=== PATIENT | female | born 1995 | race Two or more races ===

== ENCOUNTER 2021-01-13 20:28 | Emergency (ER) | payer MEDICAID ==
--- NOTE | 2021-01-13 20:46 | EDM.PDOC ---
ED HPI GENERAL MEDICAL PROBLEM - General Chief Complaint: General Stated Complaint: DIZZINESS Time Seen by Provider: 01/13/21 20:35 - History of Present Illness INITIAL COMMENTS - FREE TEXT/NARRATIVE: History of present illness: [] The patient feels dizzy. It started today. When she stands up she feels like she will pass out. She feels lightheaded. Sometime in the afternoon she developed some tingling feeling pinpricks in the left hand. That went away but she remained dizzy. The patient is 21 weeks . She is not diabetic. She is a non-smoker. She is a who has a baby with her when her boyfriend goes to work she is alone at home with the baby. She felt unsteady and decided she needed help to assure she would be safe at home with her . Review of systems: As per history of present illness and below otherwise all systems reviewed and negative. Past medical history: As per history of present illness and as reviewed below otherwise noncontributory. Surgical history: As per history of present illness and as reviewed below otherwise noncontributory. Social history: No reported history of drug or alcohol abuse. Family history: As per history of present illness and as reviewed below otherwise noncontributory. Physical exam: Constitutional - well developed, well-nourished and in no acute distress HEENT - normocephalic, no evidence of trauma - external nose and mouth normal - no mass in neck and no JVD - mucosae moist EYES - full EOM, PERRL, no icterus - no evidence of inflammation, injection, or drainage Respiratory - no respiratory distress, equal bilateral expansion, lungs clear to auscultation and no abnormal lung sounds Cardiovascular - Regular Rhythm with S1 and S2 appreciated and no murmur, gallop or rub. GI -gravid uterus. Abdomen soft without distension or organomegaly - normal bowel sounds - no guard or rebound Musculoskeletal no gross deformity of long bones or joints - no tenderness, swelling or edema Neurologic -my customary neurologic exam is normal. Alert and oriented times four - CN II-XII grossly intact - motor sensory and coordination symmetrically normal Psychiatric - appropriate mood and affect with normal thought content Hematologic - No petechiae or purpura - mucosa appropriate color and sclera not pale - normal nail bed color and refill Integument - no rash or evidence of trauma - normal turgor Diagnostics: [] Therapeutics: [] Impression: [] Plan: [] Definitive disposition and diagnosis as appropriate pending reevaluation and review of above. - Related Data Allergies Allergy/AdvReac Type Severity Reaction Status Date / Time codeine Allergy Abdominal Verified 01/13/21 20:39 Pain shellfish derived Allergy Anaphylactic Verified 01/13/21 20:39 Shock Sulfa (Sulfonamide Allergy Anxiety Verified 01/13/21 20:39 Antibiotics) Home Meds: Home Meds Aspirin 81 mg PO DAILY 01/13/21 [History] Pnv No.95/Ferrous Fum/Folic AC [ Caplet] 1 tab PO DAILY 01/13/21 [History] ED ROS GENERAL - Review of Systems Review Of Systems: Comprehensive ROS is negative, except as noted in HPI. ED EXAM, GENERAL - Physical Exam Exam: See Below Free Text/Narrative:: My physical exam is in the HPI #1 Interpretation EKG Interpretation Comments: EKG done at 2031 hrs. sinus rhythm with heart rate 98 [place] 120 QT interval 421 [place] XVI normal QRS normal ST and T impression normal EKG Course - Vital Signs Text/Narrative:: 2207 hrs. patient's hemoglobin is 10.2. Discussed with reviewed the records that the patient had been having a hemoglobin of 13 in August. Patient had anemia issues in the prior as well. Plan to recommend iron and maintain hydration. The patient's boyfriend showed up and is able to stay with her for the next 9 days. Patient will be discharged in satisfactory condition. Last Recorded V/S: Last Vital Signs Temp 36.6 C 01/13/21 20:33 Pulse 103 H 01/13/21 20:33 Resp 17 01/13/21 20:33 BP 117/78 01/13/21 20:33 Pulse Ox 99 01/13/21 20:33 Orthostatic Blood Pressure [ 129/63 Standing] Orthostatic Blood Pressure [ 115/74 Sitting] Orthostatic Blood Pressure [ 108/64 Supine] - Orders/Labs/Meds Orders: Active Orders 24 hr Category Date Time Status EKG 12 Lead [EKG Documentation Completion] [RC] STAT Care 01/13/21 20:48 Active Heart Tones [RC] ASDIRECTED Care 01/13/21 20:48 Active Orthostatic Vital Signs [RC] ASDIRECTED Care 01/13/21 21:45 Active Sodium Chloride 0.9% [Saline Flush] Med 01/13/21 20:47 Active 10 ml FLUSH ASDIRECTED PRN Sodium Chloride 0.9% [Saline Flush] Med 01/13/21 20:47 Active 2.5 ml FLUSH ASDIRECTED PRN Saline Lock Insert [OM.PC] Stat Oth 01/13/21 20:47 Ordered Medication Orders Sodium Chloride (Sodium Chloride 0.9% 10 Ml Syringe) 10 ml FLUSH ASDIRECTED PRN PRN Reason: Keep Vein Open Last Admin: 01/13/21 20:52 Dose: 10 ml Documented by: CAPRICE Sodium Chloride (Sodium Chloride 0.9% 2.5 Ml Syringe) 2.5 ml FLUSH ASDIRECTED P RN PRN Reason: Keep Vein Open Last Admin: 01/13/21 20:52 Dose: 2.5 ml Documented by: CAPRICE Labs: Laboratory Tests 01/13/21 01/13/21 01/13/21 Range/Units 21:00 21:00 21:29 WBC 7.74 (4.0-11.0) K/uL RBC 3.53 L (4.30-5.90) M/uL Hgb 10.2 L (12.0-16.0) g/dL Hct 31.0 L (36.0-46.0) % MCV 87.8 (80.0-98.0) fL MCH 28.9 (27.0-32.0) pg MCHC 32.9 (31.0-37.0) g/dL RDW Std Deviation 40.9 (28.0-62.0) fl RDW Coeff of Joseph 13 (11.0-15.0) % Plt Count 198 (150-400) K/uL MPV 9.90 (7.40-12.00) fL Neut % (Auto) 59.2 (48.0-80.0) % Lymph % (Auto) 25.5 (16.0-40.0) % [place] % (Auto) 8.4 (0.0-15.0) % Eos % (Auto) 6.8 (0.0-7.0) % Baso % (Auto) 0.1 (0.0-1.5) % Neut # (Auto) 4.6 (1.4-5.7) K/uL Lymph # (Auto) 2.0 (0.6-2.4) K/uL [place] # (Auto) 0.7 (0.0-0.8) K/uL Eos # (Auto) 0.5 (0.0-0.7) K/uL Baso # (Auto) 0.0 (0.0-0.1) K/uL Nucleated RBC % 0.0 /100WBC Nucleated RBCs # 0 K/uL Sodium 139 (136-145) mmol/L Potassium 3.7 (3.5-5.1) mmol/L Chloride 106 (98-107) mmol/L Carbon Dioxide 24.0 (21.0-32.0) mmol/L BUN 6 L (7.0-18.0) mg/dL Creatinine 0.6 (0.6-1.0) mg/dL Est Cr Clr Drug Dosing 111.39 mL/min Estimated GFR (MDRD) > 60.0 ml/min Glucose 134 H (74-106) mg/dL Calcium 8.2 L (8.5-10.1) mg/dL Total Bilirubin 0.1 L (0.2-1.0) mg/dL AST 13 L (15-37) IU/L ALT 19 (14-63) IU/L Alkaline Phosphatase 67 (46-116) U/L Total Protein 6.1 L (6.4-8.2) g/dL Albumin 2.4 L (3.4-5.0) g/dL Globulin 3.7 (2.6-4.0) g/dL Albumin/Globulin Ratio 0.7 L (0.9-1.6) Urine Color YELLOW Urine Appearance CLEAR Urine pH 6.5 (5.0-8.0) Ur Specific [place] 1.010 (1.001-1.035) Urine Protein NEGATIVE (NEGATIVE) mg/dL Urine Glucose (UA) 100 H (NEGATIVE) mg/dL Urine Ketones NEGATIVE (NEGATIVE) mg/dL Urine Occult Blood TRACE-INTACT H (NEGATIVE) Urine Nitrite NEGATIVE (NEGATIVE) Urine Bilirubin NEGATIVE (NEGATIVE) Urine Urobilinogen 0.2 (<2.0) EU/dL Ur Leukocyte Esterase TRACE H (NEGATIVE) Urine RBC 0-2 (0-2/HPF) Urine WBC 0-3 (0-5/HPF) Ur Epithelial Cells FEW (NONE-FEW) Urine Bacteria FEW (NEGATIVE) Meds: Medications Generic Name Dose Route Start Last Admin Trade Name Freq PRN Reason Stop Dose Admin Sodium Chloride 10 ml 01/13/21 20:47 01/13/21 20:52 Sodium Chloride 0.9% 10 Ml Syringe FLUSH 10 ml ASDIRECTED PRN Administration Keep Vein Open Sodium Chloride 2.5 ml 01/13/21 20:47 01/13/21 20:52 Sodium Chloride 0.9% 2.5 Ml Syringe FLUSH 2.5 ml ASDIRECTED PRN Administration Keep Vein Open Discontinued Medications Generic Name Dose Route Start Last Admin Trade Name Freq PRN Reason Stop Dose Admin Sodium Chloride 1,000 mls @ 1,000 mls/hr 01/13/21 20:49 01/13/21 20:52 Normal Saline IV 01/13/21 21:48 1,000 mls/hr .Bolus ONE Administration Departure - Departure Time of Disposition: 22:08 Disposition: Home, Self-Care 01 Condition: Good Clinical Impression: Dizziness, Anemia affecting - Discharge Information Instructions: and Anemia Forms: ED Department Discharge Additional Instructions: Iron supplementation is available [id number]. You can take the equivalent of up to 200 mg of elemental iron per day in divided doses up to 3 times a day. Make sure you are also taking enough nutrition and plenty of fluids. [facility] [address] [place] [address] [facility] [address] [place] [address] The following information is given to patients seen in the emergency department who are being discharged to home. This information is to outline your options for follow-up care. We provide all patients seen in our emergency department with a follow-up referral. The need for follow-up, as well as the timing and circumstances, are variable depending upon the specifics of your emergency department visit. If you don't have a primary care physician on staff, we will provide you with a referral. We always advise you to contact your personal physician following an emergency department visit to inform them of the circumstance of the visit and for follow-up with them and/or the need for any referrals to a consulting specialist. The emergency department will also refer you to a specialist when appropriate. This referral assures that you have the opportunity for follow-up care with a specialist. All of these measure are taken in an effort to provide you with optimal care, which includes your follow-up. Under all circumstances we always encourage you to contact your private physician who remains a resource for coordinating your care. When calling for follow-up care, please make the office aware that this follow-up is from your recent emergency room visit. If for any reason you are refused follow-up, please contact the [facility] Emergency Department at and asked to speak to the emergency department caridad sánchez nurse. Sepsis Event Note (ED) - Focused Exam Vital Signs: Vital Signs Temp Pulse Resp BP Pulse Ox 01/13/21 20:33 36.6 C 103 H 17 117/78 99 - My Orders Last 24 Hours: My Active Orders 01/13/21 20:47 Sodium Chloride 0.9% [Saline Flush] 10 ml FLUSH ASDIRECTED PRN Sodium Chloride 0.9% [Saline Flush] 2.5 ml FLUSH ASDIRECTED PRN Saline Lock Insert [OM.PC] Stat 01/13/21 20:48 EKG 12 Lead [EKG Documentation Completion] [RC] STAT Heart Tones [RC] ASDIRECTED 01/13/21 21:45 Orthostatic Vital Signs [RC] ASDIRECTED - Assessment/Plan Last 24 Hours: My Active Orders 01/13/21 20:47 Sodium Chloride 0.9% [Saline Flush] 10 ml FLUSH ASDIRECTED PRN Sodium Chloride 0.9% [Saline Flush] 2.5 ml FLUSH ASDIRECTED PRN Saline Lock Insert [OM.PC] Stat 01/13/21 20:48 EKG 12 Lead [EKG Documentation Completion] [RC] STAT Heart Tones [RC] ASDIRECTED 01/13/21 21:45 Orthostatic Vital Signs [RC] ASDIRECTED
[2021-01-13] MEDS ORDERED: Sodium Chloride 0.9% 10 ML Syringe FLUSH PRN (20:47)
[2021-01-13] MEDS ORDERED: Sodium Chloride 0.9% 2.5 ML Syringe FLUSH PRN (20:47)
[2021-01-13] MEDS ORDERED: Sodium Chloride 0.9% 1,000 ML IV ONE (20:49)
[2021-01-13 21:26] LABS: BLOOD UREA NITROGEN,BUN 6 mg/dL (7.0-18.0); CHLORIDE,CL 106 mmol/L (98-107); GLUCOSE RANDOM 134 mg/dL (74-106); POTASSIUM,K 3.7 mmol/L (3.5-5.1); SODIUM,NA 139 mmol/L (136-145)
== END 2021-01-13 22:30 | disposition home or self-care (01) ==
LOC: MW.ED 20:28
DX: O99.012 Anemia complicating pregnancy, second trimester (principal); O99.891 Other specified diseases and conditions complicating pregnancy; R42 Dizziness and giddiness; Z79.82 Long term (current) use of aspirin; Z88.5 Allergy status to narcotic agent; Z88.2 Allergy status to sulfonamides; Z91.013 Allergy to seafood; Z3A.21 21 weeks gestation of pregnancy
CPT/HCPCS: 36415; 80053; 81001; 82947; 85025; 93005; 99284; J7030; 93010; 99283

== ENCOUNTER 2021-02-09 16:02 | Emergency (ER) | payer MEDICAID ==
--- NOTE | 2021-02-09 16:41 | EDM.PDOC ---
ED HPI GENERAL MEDICAL PROBLEM - General Chief Complaint: Lower Extremity Injury/Pain Stated Complaint: SWOLLEN FOOT Time Seen by Provider: 02/09/21 16:08 - History of Present Illness INITIAL COMMENTS - FREE TEXT/NARRATIVE: History of present illness: [] Patient is 2 weeks of pain in the left foot. It is gradually increasing. It is associated with swelling that goes down a little bit with ice and elevation but not substantially. The pain is severe when she tries to walk on it and she walks on it outer lateral side of her foot because of that. The patient is starting to lose her balance and feels like she is going to fall because of this. She is 25 weeks . Review of systems: As per history of present illness and below otherwise all systems reviewed and negative. Past medical history: As per history of present illness and as reviewed below otherwise noncontributory. Surgical history: As per history of present illness and as reviewed below otherwise noncontributory. Social history: No reported history of drug or alcohol abuse. Family history: As per history of present illness and as reviewed below otherwise noncontributory. Physical exam: Constitutional - well developed, well-nourished and in no acute distress HEENT - normocephalic, no evidence of trauma - external nose and mouth normal - no mass in neck and no JVD - mucosae moist EYES - full EOM, PERRL, no icterus - no evidence of inflammation, injection, or drainage Respiratory - no respiratory distress, equal bilateral expansion GI - abdomen soft with fundus palpable consistent with her dates. Musculoskeletal swelling and tenderness on the dorsal left foot at the level of the distal metatarsals 1 2 and 3. Otherwise no gross deformity of long bones or joints - no tenderness, swelling or edema Neurologic - Alert and oriented times four - CN II-XII grossly intact - motor sensory and coordination symmetrically normal Psychiatric - appropriate mood and affect with normal thought content Hematologic - No petechiae or purpura - mucosa appropriate color and sclera not pale - normal nail bed color and refill Integument - no rash or evidence of trauma - normal turgor Diagnostics: [] Therapeutics: [] Impression: [] Plan: [] Definitive disposition and diagnosis as appropriate pending reevaluation and review of above. Left Ankle Pain Score (Numeric/FACES): 8 - Related Data Allergies Allergy/AdvReac Type Severity Reaction Status Date / Time codeine Allergy Abdominal Verified 02/09/21 16:20 Pain shellfish derived Allergy Anaphylactic Verified 02/09/21 16:20 Shock Sulfa (Sulfonamide Allergy Anxiety Verified 02/09/21 16:20 Antibiotics) Home Meds: Home Meds Aspirin 81 mg PO DAILY 01/13/21 [History] Pnv No.95/Ferrous Fum/Folic AC [ Caplet] 1 tab PO DAILY 01/13/21 [History] Past Medical History - Past Health History Medical/Surgical History: Denies Medical/Surgical History Other Cardiovascular History: costochrondritis, pleurisy - Infectious Disease History Infectious Disease History: Reports: None Social & Family History - Family History Family Medical History: No Pertinent Family History - Tobacco Use Tobacco Use Status *Q: Never Tobacco User - Caffeine Use Caffeine Use: Reports: None - Recreational Drug Use Recreational Drug Use: No Review of Systems - Review of Systems Review Of Systems: Comprehensive ROS is negative, except as noted in HPI. ED EXAM, GENERAL - Physical Exam Exam: See Below Free Text/Narrative:: My physical exam is in the HPI Course - Vital Signs Text/Narrative:: Since the x-ray and ultrasound are negative for the left lower extremity. Plan Shad wrap and cups crutches to immobilize and reduce the swelling. Last Recorded V/S: Last Vital Signs Temp 36.1 C 02/09/21 16:22 Pulse 101 H 02/09/21 16:22 Resp 18 02/09/21 16:22 BP 106/66 02/09/21 16:22 Pulse Ox 98 02/09/21 16:22 - Orders/Labs/Meds Orders: Active Orders 24 hr Category Date Time Status DME for Discharge [COMM] Stat Oth 02/09/21 18:15 Ordered Departure - Departure Time of Disposition: 18:30 Disposition: Home, Self-Care 01 Condition: Good Clinical Impression: Sprain of left foot - Discharge Information Instructions: Foot Sprain Referrals: PCP,None [Primary Care Provider] - Forms: ED Department Discharge Additional Instructions: Rest ice compress and elevate. Follow-up PMD or Ortho clinic if not better in 2 to 3 days. [facility] [address], [address] [place] [address] The following information is given to patients seen in the emergency department who are being discharged to home. This information is to outline your options for follow-up care. We provide all patients seen in our emergency department with a follow-up referral. The need for follow-up, as well as the timing and circumstances, are variable depending upon the specifics of your emergency department visit. If you don't have a primary care physician on staff, we will provide you with a referral. We always advise you to contact your personal physician following an emergency department visit to inform them of the circumstance of the visit and for follow-up with them and/or the need for any referrals to a consulting specialist. The emergency department will also refer you to a specialist when appropriate. This referral assures that you have the opportunity for follow-up care with a specialist. All of these measure are taken in an effort to provide you with optimal care, which includes your follow-up. Under all circumstances we always encourage you to contact your private physician who remains a resource for coordinating your care. When calling for follow-up care, please make the office aware that this follow-up is from your recent emergency room visit. If for any reason you are refused follow-up, please contact the [facility] Emergency Department at and asked to speak to the emergency department charge nurse. Sepsis Event Note (ED) - Evaluation Sepsis Screening Result: No Definite Risk - Focused Exam Vital Signs: Vital Signs Temp Pulse Resp BP Pulse Ox 02/09/21 16:22 36.1 C 101 H 18 106/66 98 - My Orders Last 24 Hours: My Active Orders 02/09/21 18:15 DME for Discharge [COMM] Stat - Assessment/Plan Last 24 Hours: My Active Orders 02/09/21 18:15 DME for Discharge [COMM] Stat
--- NOTE | 2021-02-09 17:49 | US ---
INDICATION: Leg pain and swelling TECHNIQUE: Ultrasound venous duplex lower left extremity. Compression venous exam was performed using shukla-scale, color Doppler, and spectral Doppler analysis. COMPARISON: None. FINDINGS: Sonographic imaging demonstrates the left common femoral, deep femoral, superficial femoral, popliteal, posterior tibial and greater saphenous veins to be fully compressible with normal color Doppler blood flow. IMPRESSION: Normal left lower extremity venous ultrasound, no sign of deep venous thrombosis. Dictated by Jeffery El MD @ 02/09/2021 5:47:[address] Jeffery El @ Feb 09 2021 5:47PM
--- NOTE | 2021-02-09 18:06 | CR ---
Indication: Left foot swelling and pain. Technique: Left foot 3 views Comparison: None Findings: Bones: Alignment is normal. No fractures or bone lesions. Joint spaces: Joint spaces are well maintained. No degenerative changes. Soft tissues: Unremarkable. Impression: Negative left foot. Dictated by Sandro Clemente MD @ 02/09/2021 6:05:[address] Sandro Clemente @ Feb 09 2021 6:05PM
== END 2021-02-09 18:40 | disposition home or self-care (01) ==
LOC: MW.ED 16:02
DX: O9A.212 Injury, poisoning and certain other consequences of external causes complicating pregnancy, second trimester (principal); S93.602A Unspecified sprain of left foot, initial encounter; Z3A.25 25 weeks gestation of pregnancy; Z88.5 Allergy status to narcotic agent; Z91.013 Allergy to seafood; Z88.2 Allergy status to sulfonamides; Z79.82 Long term (current) use of aspirin; X58.XXXA Exposure to other specified factors, initial encounter
CPT/HCPCS: 73630-26-LT; 73630-LT; 93971-26-LT; 93971-LT; 99282; 99284-25

== ENCOUNTER 2021-02-11 12:37 | Emergency (ER) | payer MEDICAID ==
[2021-02-11] MEDS ORDERED: Sodium Chloride 0.9% 10 ML Syringe FLUSH PRN (13:01)
[2021-02-11] MEDS ORDERED: Sodium Chloride 0.9% 1,000 ML IV ONE (13:01)
[2021-02-11] MEDS ORDERED: Sodium Chloride 0.9% 2.5 ML Syringe FLUSH PRN (13:01)
[2021-02-11 13:41] LABS: BLOOD UREA NITROGEN,BUN 6 mg/dL (7.0-18.0); CARBON DIOXIDE,CO2 22.5 mmol/L (21.0-32.0); CHLORIDE,CL 103 mmol/L (98-107); GLUCOSE RANDOM 99 mg/dL (74-106); POTASSIUM,K 3.7 mmol/L (3.5-5.1); SODIUM,NA 135 mmol/L (136-145)
[2021-02-11] MEDS ORDERED: Nitrofurantoin Monohydrate/Macrocrystalline 100 MG Cap PO ONE (14:00)
[2021-02-11] MEDS ORDERED: Cephalexin 500 MG Cap PO ONE (14:13)
--- NOTE | 2021-02-11 14:17 | EDM.PDOC ---
ED HPI GENERAL MEDICAL PROBLEM - General Chief Complaint: Fever Stated Complaint: feeling weak,fever,sore throat Time Seen by Provider: 02/11/21 12:46 Source of Information: Reports: Patient History Limitations: Reports: No Limitations - History of Present Illness INITIAL COMMENTS - FREE TEXT/NARRATIVE: HISTORY AND PHYSICAL: History of present illness: The patient is a 25-year-old female who presents to the emergency room, she is 25 weeks , with complaints of a fever of 10 2-1 03 at 09 100 for which she took Tylenol. She states that she has a cough slight scratchy throat since yesterday. Her daughter was recently diagnosed with croup. She said she had vomiting x1 today. She says she has had no Atif symptoms such as dysuria or frequency. She did state that during the night she had some mild cramping but none today. She says she is able to eat and drink at present without difficulty. She states baby has been moving appropriately. Patient denies any headache, change in vision, syncope or near syncope. Denies any chest pain, back pain, or shortness of breath. Denies any abdominal pain, diarrhea, constipation or dysuria. Has not noted any blood in urine or stool. Patient has been eating and drinking appropriately. In the emergency room the patient is he is hemodynamically stable with a blood pressure of 98/64 and a heart rate of 103. She is afebrile with a temperature of 97.3. Review of systems: As per history of present illness and below otherwise all systems reviewed and negative. Past medical history: As per history of present illness and as reviewed below otherwise noncontributory. Surgical history: As per history of present illness and as reviewed below otherwise noncontributory. Social history: See social history for further information Family history: As per history of present illness and as reviewed below otherwise noncontributory. Physical exam: General: Well developed and well nourished. Alert and orientated x 3. Nontoxic in appearance and in no acute distress. Vital signs are stable and have been reviewed by me. Nursing notes were reviewed. HEENT: Atraumatic, normocephalic, pupils equal and reactive bilaterally, negative for conjunctival pallor or scleral icterus, mucous membranes moist, TMs normal bilaterally, throat clear, neck supple, nontender, trachea midline. No drooling or trismus noted. No meningeal signs. No hot potato voice noted. Lungs: Clear to auscultation bilaterally. No wheezes, rales, or rhonchi. Chest nontender. Normal work of breathing, no accessory muscles used. Heart: S1S2, regular rate and rhythm without overt murmur, gallops, or rubs. No JVD. No peripheral edema Abdomen: Rounded (25 weeks ), nontender. Normoactive bowel sounds. Negative for masses or costovertebral tenderness. Skin: Intact, warm, dry. No lesions or rashes noted. Hematologic: No petechiae or purpra. Mucosa appropriate color and normal nail bed color and refill. Extremities: Atraumatic, moves all extremities per self without difficulty or deficits, negative for cords or calf pain. Neurovascular unremarkable. Neuro: Awake, alert, oriented. Cranial nerves II through XII unremarkable. Cerebellum unremarkable. Motor and sensory unremarkable throughout. Exam nonfocal. Psychiatric: Mood and affect are appropriate. Normal thought process. Answering questions appropriately. Notes: *This patient was seen and evaluated during the 2019 SARS-CoV-2 novel coronavirus pandemic period. Community viral transmission is ongoing at time of this encounter and the emergency department is operating under pandemic response procedures. The patient presents for complaints of a fever that started this morning but she has had a cough since yesterday. She does state that she has a scratchy throat but as she has a cough I will not test her for strep. The patient is agreeable to blood work, urinalysis, and Covid testing. I will give the patient IV fluids. The RN stated heart tones were within normal limits. The patient's blood work is unremarkable. Her COVID-19 swab was negative. The patient's urinalysis suggested a UTI. Blood culture has been sent. I will start the patient on Keflex 500 mg twice daily for 5 days. 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 I have talked with the patient about today's findings, in addition to providing specific details for plan of care. Reassessment at the time of disposition demonstrates that the patient is in no acute distress. The patient is stable for discharge, counseling was provided and we discussed in great detail signs and symptoms that would prompt them to return to the Emergency Department. Medication, follow up and supportive care measures were reviewed and discussed. Voices understanding and is agreeable to plan of care. Denies any further questions or concerns at this time. Diagnostics: CBC, CMP, UA, COVID-19 swab Therapeutics: IV fluids Prescription: Keflex 500 p.o. twice daily for 5 days Impression: UTI Plan: 1. You were evaluated today on an emergent basis. Your complaints of a fever were evaluated with blood work, a urinalysis, and a COVID-19 swab. Your blood work was within normal limits. Your COVID-19 swab was negative. Your urinalysis showed an infection. I have sent this for culture. You should follow-up with your CAREER DEVELOPMENT COORDINATOR/TEACHER to ensure that Keflex is the appropriate antibiotic for you. I have prescribed you to have Keflex 500 mg twice a day for 5 days. Continue to get the appropriate mount of fluids and healthy diet. You can use Tylenol to treat the discomfort of fever as needed. 2. You can alternate Tylenol as needed for pain and fever management. 3. We encourage you to follow up with your primary care provider and/or recommended specialist in the next few days for re-evaluation and further care/management. 4. If your symptoms should worsen, new symptoms develop or any of the signs and symptoms we discussed should arise please return to the emergency room or call 911 (if needed). Definitive disposition and diagnosis as appropriate pending reevaluation and review of above. sorethroat Pain Score (Numeric/FACES): 5 - Related Data Allergies Allergy/AdvReac Type Severity Reaction Status Date / Time codeine Allergy Abdominal Verified 02/11/21 13:10 Pain shellfish derived Allergy Anaphylactic Verified 02/11/21 13:10 Shock Sulfa (Sulfonamide Allergy Anxiety Verified 02/11/21 13:10 Antibiotics) Home Meds: Home Meds Aspirin 81 mg PO DAILY 01/13/21 [History] Pnv No.95/Ferrous Fum/Folic AC [ Caplet] 1 tab PO DAILY 01/13/21 [History] cephALEXin [Keflex] 500 mg PO BID 10 Days #9 cap 02/11/21 [Rx] Past Medical History - Past Health History Medical/Surgical History: Denies Medical/Surgical History Other Cardiovascular History: costochrondritis, pleurisy 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 ED EXAM, GENERAL - Physical Exam Exam: See Below (See dictation) Course - Vital Signs Last Recorded V/S: Last Vital Signs Temp 97.3 F 02/11/21 12:50 Pulse 88 02/11/21 14:00 Resp 17 02/11/21 14:00 BP 109/62 02/11/21 14:00 Pulse Ox 99 02/11/21 14:00 - Orders/Labs/Meds Orders: Active Orders 24 hr Category Date Time Status Saline Lock Insert [OM.PC] Stat Oth 02/11/21 13:00 Ordered Labs: Laboratory Tests 02/11/21 02/11/21 02/11/21 Range/Units 13:10 13:10 13:24 WBC 7.56 (4.0-11.0) K/uL RBC 3.92 L (4.30-5.90) M/uL Hgb 11.0 L (12.0-16.0) g/dL Hct 33.2 L (36.0-46.0) % MCV 84.7 (80.0-98.0) fL MCH 28.1 (27.0-32.0) pg MCHC 33.1 (31.0-37.0) g/dL RDW Std Deviation 39.6 (28.0-62.0) fl RDW Coeff of Joseph 13 (11.0-15.0) % Plt Count 213 (150-400) K/uL MPV 10.20 (7.40-12.00) fL Neut % (Auto) 72.6 (48.0-80.0) % Lymph % (Auto) 18.3 (16.0-40.0) % [place] % (Auto) 7.0 (0.0-15.0) % Eos % (Auto) 2.0 (0.0-7.0) % Baso % (Auto) 0.1 (0.0-1.5) % Neut # (Auto) 5.5 (1.4-5.7) K/uL Lymph # (Auto) 1.4 (0.6-2.4) K/uL [place] # (Auto) 0.5 (0.0-0.8) K/uL Eos # (Auto) 0.2 (0.0-0.7) K/uL Baso # (Auto) 0.0 (0.0-0.1) K/uL Nucleated RBC % 0.0 /100WBC Nucleated RBCs # 0 K/uL Sodium 135 L (136-145) mmol/L Potassium 3.7 (3.5-5.1) mmol/L Chloride 103 (98-107) mmol/L Carbon Dioxide 22.5 (21.0-32.0) mmol/L BUN 6 L (7.0-18.0) mg/dL Creatinine 0.6 (0.6-1.0) mg/dL Est Cr Clr Drug Dosing 111.39 mL/min Estimated GFR (MDRD) > 60.0 ml/min Glucose 99 (74-106) mg/dL Calcium 8.7 (8.5-10.1) mg/dL Total Bilirubin 0.1 L (0.2-1.0) mg/dL AST 14 L (15-37) IU/L ALT 18 (14-63) IU/L Alkaline Phosphatase 85 (46-116) U/L Total Protein 7.1 (6.4-8.2) g/dL Albumin 2.8 L (3.4-5.0) g/dL Globulin 4.3 H (2.6-4.0) g/dL Albumin/Globulin Ratio 0.7 L (0.9-1.6) Urine Color Urine Appearance Urine pH (5.0-8.0) Ur Specific [place] (1.001-1.035) Urine Protein (NEGATIVE) mg/dL Urine Glucose (UA) (NEGATIVE) mg/dL Urine Ketones (NEGATIVE) mg/dL Urine Occult Blood (NEGATIVE) Urine Nitrite (NEGATIVE) Urine Bilirubin (NEGATIVE) Urine Urobilinogen (<2.0) EU/dL Ur Leukocyte Esterase (NEGATIVE) Urine RBC (0-2/HPF) Urine WBC (0-5/HPF) Ur Epithelial Cells (NONE-FEW) Urine Bacteria (NEGATIVE) SARS-CoV-2 RNA (JEREMIAH) NEGATIVE (NEGATIVE) 05/22/21 Range/Units 13:30 WBC (4.0-11.0) K/uL RBC (4.30-5.90) M/uL Hgb (12.0-16.0) g/dL Hct (36.0-46.0) % MCV (80.0-98.0) fL MCH (27.0-32.0) pg MCHC (31.0-37.0) g/dL RDW Std Deviation (28.0-62.0) fl RDW Coeff of Joseph (11.0-15.0) % Plt Count (150-400) K/uL MPV (7.40-12.00) fL Neut % (Auto) (48.0-80.0) % Lymph % (Auto) (16.0-40.0) % [place] % (Auto) (0.0-15.0) % Eos % (Auto) (0.0-7.0) % Baso % (Auto) (0.0-1.5) % Neut # (Auto) (1.4-5.7) K/uL Lymph # (Auto) (0.6-2.4) K/uL [place] # (Auto) (0.0-0.8) K/uL Eos # (Auto) (0.0-0.7) K/uL Baso # (Auto) (0.0-0.1) K/uL Nucleated RBC % /100WBC Nucleated RBCs # K/uL Sodium (136-145) mmol/L Potassium (3.5-5.1) mmol/L Chloride (98-107) mmol/L Carbon Dioxide (21.0-32.0) mmol/L BUN (7.0-18.0) mg/dL Creatinine (0.6-1.0) mg/dL Est Cr Clr Drug Dosing mL/min Estimated GFR (MDRD) ml/min Glucose (74-106) mg/dL Calcium (8.5-10.1) mg/dL Total Bilirubin (0.2-1.0) mg/dL AST (15-37) IU/L ALT (14-63) IU/L Alkaline Phosphatase (46-116) U/L Total Protein (6.4-8.2) g/dL Albumin (3.4-5.0) g/dL Globulin (2.6-4.0) g/dL Albumin/Globulin Ratio (0.9-1.6) Urine Color YELLOW Urine Appearance SLT CLOUDY Urine pH 6.0 (5.0-8.0) Ur Specific [place] 1.025 (1.001-1.035) Urine Protein NEGATIVE (NEGATIVE) mg/dL Urine Glucose (UA) NEGATIVE (NEGATIVE) mg/dL Urine Ketones >=80 (NEGATIVE) mg/dL Urine Occult Blood SMALL H (NEGATIVE) Urine Nitrite NEGATIVE (NEGATIVE) Urine Bilirubin NEGATIVE (NEGATIVE) Urine Urobilinogen 0.2 (<2.0) EU/dL Ur Leukocyte Esterase TRACE H (NEGATIVE) Urine RBC 0-2 (0-2/HPF) Urine WBC 1-3 (0-5/HPF) Ur Epithelial Cells MODERATE (NONE-FEW) Urine Bacteria 1+ H (NEGATIVE) SARS-CoV-2 RNA (JEREMIAH) (NEGATIVE) Meds: Medications Discontinued Medications Generic Name Dose Route Start Last Admin Trade Name Freq PRN Reason Stop Dose Admin Cephalexin 500 mg 02/11/21 14:13 02/11/21 14:28 Cephalexin 500 Mg Cap PO 02/11/21 14:14 500 mg ONETIME ONE Administration Sodium Chloride 1,000 mls @ 999 mls/hr 02/11/21 13:01 02/11/21 13:11 Normal Saline IV 02/11/21 14:01 999 mls/hr .BOLUS ONE Administration Nitrofurantoin Macrocrystals 100 mg 02/11/21 14:00 02/11/21 14:27 Nitrofurantoin Monohydrate/Macrocrystalline 100 Mg Cap PO 02/11/21 14:01 Not Given ONETIME ONE Sodium Chloride 10 ml 02/11/21 13:01 02/11/21 13:11 Sodium Chloride 0.9% 10 Ml Syringe FLUSH 10 ml ASDIRECTED PRN Administration Keep Vein Open Sodium Chloride 2.5 ml 02/11/21 13:01 02/11/21 13:11 Sodium Chloride 0.9% 2.5 Ml Syringe FLUSH 2.5 ml ASDIRECTED PRN Administration Keep Vein Open Departure - Departure Time of Disposition: 14:16 Disposition: Home, Self-Care 01 Condition: Good Clinical Impression: UTI (urinary tract infection) Qualifiers: Urinary tract infection type: acute cystitis Hematuria presence: without hematuria Qualified Code(s): N30.00 - Acute cystitis without hematuria - Discharge Information *PRESCRIPTION DRUG MONITORING PROGRAM REVIEWED*: Not Applicable *COPY OF PRESCRIPTION DRUG MONITORING REPORT IN PATIENT REGINE: Not Applicable Prescriptions: cephALEXin [Keflex] 500 mg PO BID 10 Days #9 cap Instructions: and Urinary Tract Infection Referrals: PCP,None [Primary Care Provider] - Forms: ED Department Discharge Additional Instructions: The following information is given to patients seen in the emergency department who are being discharged to home. This information is to outline your options for follow-up care. We provide all patients seen in our emergency department with a follow-up referral. The need for follow-up, as well as the timing and circumstances, are variable depending upon the specifics of your emergency department visit. If you don't have a primary care physician on staff, we will provide you with a referral. We always advise you to contact your personal physician following an emergency department visit to inform them of the circumstance of the visit and for follow-up with them and/or the need for any referrals to a consulting specialist. The emergency department will also refer you to a specialist when appropriate. This referral assures that you have the opportunity for follow-up care with a specialist. All of these measure are taken in an effort to provide you with optimal care, which includes your follow-up. Under all circumstances we always encourage you to contact your private physician who remains a resource for coordinating your care. When calling for follow-up care, please make the office aware that this follow-up is from your recent emergency room visit. If for any reason you are refused follow-up, please contact the [facility] Emergency Department at and asked to speak to the emergency department charge nurse. [facility] - Primary Care [address] [place] [id number] [address] Plan: 1. You were evaluated today on an emergent basis. Your complaints of a fever were evaluated with blood work, a urinalysis, and a COVID-19 swab. Your blood work was within normal limits. Your COVID-19 swab was negative. Your urinalysis showed an infection. I have sent this for culture. You should follow-up with your CAREER DEVELOPMENT COORDINATOR/TEACHER to ensure that Keflex is the appropriate antibiotic for you. I have prescribed you to have Keflex 500 mg twice a day for 5 days. Continue to get the appropriate mount of fluids and healthy diet. Return to the ED if you have nausea and vomiting. You can use Tylenol to treat the discomfort of fever as needed. 2. You can alternate Tylenol as needed for pain and fever management. 3. We encourage you to follow up with your primary care provider and/or recommended specialist in the next few days for re-evaluation and further care/management. 4. If your symptoms should worsen, new symptoms develop or any of the signs and symptoms we discussed should arise please return to the emergency room or call 911 (if needed). Sepsis Event Note (ED) - Evaluation Sepsis Screening Result: No Definite Risk - Focused Exam Vital Signs: Vital Signs Temp Pulse Resp BP Pulse Ox 02/11/21 14:00 88 17 109/62 99 02/11/21 12:50 97.3 F 98 19 108/64 98 - My Orders Last 24 Hours: My Active Orders 02/11/21 13:00 Saline Lock Insert [OM.PC] Stat - Assessment/Plan Last 24 Hours: My Active Orders 02/11/21 13:00 Saline Lock Insert [OM.PC] Stat
== END 2021-02-11 14:36 | disposition home or self-care (01) ==
LOC: MW.ED 12:37
DX: N30.00 Acute cystitis without hematuria (principal); Z88.5 Allergy status to narcotic agent; Z88.2 Allergy status to sulfonamides; Z91.013 Allergy to seafood; Z79.82 Long term (current) use of aspirin; Z20.822 Contact with and (suspected) exposure to COVID-19
CPT/HCPCS: 36415; 80053; 81001; 85025; 87635; 99283; A9270; J7030; U0002

== ENCOUNTER 2021-05-03 14:42 | Inpatient (IN) | payer MEDICAID ==
[2021-05-03] MEDS ORDERED: Sodium Chloride 0.9% 10 ML Syringe FLUSH PRN (15:01)
[2021-05-03] MEDS ORDERED: Ondansetron 4 MG/2 ML SDV IVPUSH PRN (15:01)
[2021-05-03] MEDS ORDERED: Butorphanol 1 MG/ML SDV IVPUSH PRN (15:01)
[2021-05-03] MEDS ORDERED: Tranexamic Acid 1,000 MG in Sodium Chloride 0.9% 100 ML IV PRN (15:01)
[2021-05-03] MEDS ORDERED: Sodium Chloride 0.9% 2.5 ML Syringe FLUSH PRN (15:01)
[2021-05-03] MEDS ORDERED: Water For Irrigation,Sterile 1,000 ML Container IRR PRN (15:01)
[2021-05-03] MEDS ORDERED: Lidocaine 1% 50 ML MDV INJECT PRN (15:01)
[2021-05-03] MEDS ORDERED: Nalbuphine 10 MG/1 ML Vial IVPUSH PRN (15:01)
[2021-05-03] MEDS ORDERED: Sodium Chloride 0.9% 10 ML SDV IV PRN (15:01)
[2021-05-03] MEDS ORDERED: Misoprostol 200 MCG Tab PO PRN (15:01)
[2021-05-03] MEDS ORDERED: Carboprost Tromethamine 250 MCG/1 ML Amp IM PRN (15:01)
[2021-05-03] MEDS ORDERED: Methylergonovine 0.2 MG/1 ML Amp IM PRN (15:01)
[2021-05-03] MEDS ORDERED: Oxytocin/0.9 % Sodium Chloride 30 UNIT/500 ML BAG IV SCH ×2 (15:15→17:45)
[2021-05-03] MEDS: Lactated Ringers 1,000 ML IV SCH ×3 (15:16→23:48)
[2021-05-03] MEDS ORDERED: Bupivacaine 0.25% 30 ML SDV ONE (15:46)
[2021-05-03] MEDS ORDERED: Ropivacaine HCl/PF 200 ML ONE (15:46)
--- NOTE | 2021-05-03 16:17 | PCM.PREANE ---
Preanesthetic Assessment - Anesthesia/Transfusion/Family Hx Anesthesia History: Prior Anesthesia Without Reaction Family History of Anesthesia Reaction: No Transfusion History: No Prior Transfusion(s) - Review of Systems General: No Symptoms Pulmonary: No Symptoms Cardiovascular: No Symptoms Gastrointestinal: No Symptoms Neurological: No Symptoms Other: Reports: None - Physical Assessment Height: 5 ft 2 in Weight: 170 lb ASA Class: 2 Mental Status: Alert & Oriented x3 Airway Class: Mallampati = 3 Dentition: Reports: Normal Dentition ROM/Head Extension: Full Lungs: Clear to Auscultation, Normal Respiratory Effort Cardiovascular: Regular Rate, Regular Rhythm - Lab Values: Laboratory Last Values POC Glucose 70 mg/dL (70-99) 05/03/21 15:33 - Allergies Allergies/Adverse Reactions: Allergies Allergy/AdvReac Type Severity Reaction Status Date / Time codeine Allergy Abdominal Verified 05/03/21 14:58 Pain Latex, Natural Rubber Allergy Itching Verified 05/03/21 14:59 shellfish derived Allergy Anaphylactic Verified 05/03/21 14:58 Shock Sulfa (Sulfonamide Allergy Anxiety Verified 05/03/21 14:58 Antibiotics) - Blood Blood Available: Yes Product(s) Available: PRBC - Anesthesia Plan Pre-Op Medication Ordered: None - Acknowledgements Anesthesia Type Planned: Epidural Pt an Appropriate Candidate for the Planned Anesthesia: Yes Alternatives and Risks of Anesthesia Discussed w Pt/Guardian: Yes Pt/Guardian Understands and Agrees with Anesthesia Plan: Yes PreAnesthesia Questionnaire - Past Health History Medical/Surgical History: Denies Medical/Surgical History Other Cardiovascular History: costochrondritis, pleurisy 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: - Infectious Disease History Infectious Disease History: Reports: None - Past Surgical History Cardiovascular Surgical History: Reports: None - HOME MEDS Home Medications: Home Meds Aspirin 81 mg PO DAILY 01/13/21 [History] Pnv No.95/Ferrous Fum/Folic AC [ Caplet] 1 tab PO DAILY 01/13/21 [History] Ferrous Sulfate, Dried [Iron] 160 mg PO DAILY 04/05/21 [History] Magnesium 250 mg PO DAILY 04/05/21 [History] - CURRENT (IN HOUSE) MEDS Current Meds: Current Medications Butorphanol Tartrate (Butorphanol 1 Mg/Ml Sdv) 1 mg IVPUSH Q1H PRN PRN Reason: Pain (severe 7-10) Carboprost Tromethamine (Carboprost Tromethamine 250 Mcg/1 Ml Amp) 250 mcg IM ASDIRECTED PRN PRN Reason: Post Hemorrhage Oxytocin/Sodium Chloride (Oxytocin 30 Unit/500 Ml-Ns) 30 unit in 500 mls @ 999 mls/hr IV TITRATE [facility] Tranexamic Acid 1,000 mg/ (Sodium Chloride) 110 mls @ 660 mls/hr IV ONETIME PRN PRN Reason: Bleeding Lactated Ringer's (Ringers, Lactated) 1,000 mls @ 150 mls/hr IV ASDIRECTED [facility] Last Admin: 05/03/21 15:57 Dose: 150 mls/hr Documented by: Lidocaine HCl (Lidocaine 1% 50 Ml Mdv) 50 ml INJECT ONETIME PRN PRN Reason: Laceration repair Methylergonovine Maleate (Methylergonovine 0.2 Mg/1 Ml Amp) 0.2 mg IM ASDIRECTED PRN PRN Reason: Post Hemorrhage Misoprostol (Misoprostol 200 Mcg Tab) 200 mcg PO ONETIME PRN PRN Reason: Post Hemorrhage Nalbuphine HCl (Nalbuphine 10 Mg/1 Ml Vial) 10 mg IVPUSH Q1H PRN PRN Reason: Pain (severe 7-10) Ondansetron HCl (Ondansetron 4 Mg/2 Ml Sdv) 4 mg IVPUSH Q6H PRN PRN Reason: Nausea/Vomiting Sodium Chloride (Sodium Chloride 0.9% 10 Ml Syringe) 10 ml FLUSH ASDIRECTED PRN PRN Reason: Keep Vein Open Sodium Chloride (Sodium Chloride 0.9% 2.5 Ml Syringe) 2.5 ml FLUSH ASDIRECTED PRN PRN Reason: Keep Vein Open Sodium Chloride (Sodium Chloride 0.9% 10 Ml Sdv) 10 ml IV ASDIRECTED PRN PRN Reason: IV Use Sterile Water (Water For Irrigation,Sterile 1,000 Ml Container) 1,000 ml IRR ASDIRECTED PRN PRN Reason: delivery Discontinued Medications Bupivacaine HCl (Bupivacaine 0.25% 30 Ml Sdv) Confirm Administered Dose 30 ml .ROUTE .STBuscoTurno-MED ONE Stop: 05/03/21 15:47 Ropivacaine (Naropin 0.2%) Confirm Administered Dose 200 mls @ as directed .ROUTE .ST[facility]coTurn[facility]-MED ONE Stop: 05/03/21 15:47 - Pre-Procedure Checklist Attending Provider Aware: Yes Chart Reviewed: Yes Consent Signed: Yes Labs Reviewed: Yes VS/FHR Reviewed: Yes Patient Identification Confirmation Method: Reports: Verbal Patient Pt an Appropriate Candidate for the Planned Anesthesia: Yes Alternatives and Risks of Anesthesia Discussed w Pt/Guardian: Yes - Procedure Monitors in Place: Reports: Blood Pressure, Heart Rate, SPO2 Functional IV: Yes Safety Measures: Reports: Patient Identified, Procedure Verified, Site Verified, Procedure Time Out Patient Position: Reports: Sitting Prep: Reports: Betadine x3, Sterile Drape Local Anesthetic: Reports: Intradermal Wheal w Lidocaine 1% Regional Placement Level: Reports: L3-4 Needle: Reports: 17 g Touhy Approach: Reports: Midline Technique: Reports: AMARIS Plastic Syringe Parasthesia: Reports: None Fluid Obtained: Reports: None Test Dose Medication: Reports: Lidocaine 1.5% w Epinephrine 1:200,000 Test Dose Response: Reports: Negative Loading Dose Time: 15:58 Loading Dose Medication: bupivicaine 0.25% 10cc Loading Dose Patient Position: sitting Continuous Infusion Start Time: 16:00 Continuous Infusion Medication: ropivicaine 0.2% Continuous Infusion Rate: 16 Continuous Infusion PCS Bolus Option: 4 Continuous Infusion Lockout Dose (cc/hr): 15 Patient Position Post Placement: Reports: Supline/TRISH VS and FHR Monitored in Unit Post Placement: Yes Procedure End Date: 05/03/21 Procedure End Time: 16:53
[2021-05-03] MEDS ORDERED: Terbutaline 1 MG/ML SDV SUBCUT PRN (17:41)
[2021-05-03] MEDS ORDERED: Omeprazole 20 MG Cap.CR PO ONE (23:30)
[2021-05-04] MEDS ORDERED: oxyCODONE 5 MG Tab PO PRN (03:40)
[2021-05-04] MEDS ORDERED: Bisacodyl 10 MG Supp RECTAL PRN (03:40)
[2021-05-04] MEDS ORDERED: Ibuprofen 400 MG Tab PO PRN (03:40)
[2021-05-04] MEDS ORDERED: Acetaminophen 500 MG Tab PO PRN (03:40)
[2021-05-04] MEDS ORDERED: Witch Hazel Medicated Pads 40/Jar TOP PRN (03:40)
[2021-05-04] MEDS ORDERED: Benzocaine/Menthol 20%-0.5% Spray 78 GM Cannister TOP PRN (03:40)
[2021-05-04] MEDS ORDERED: Lanolin 100% Cream 7 GM Tube TOP PRN (03:40)
--- NOTE | 2021-05-04 03:41 | PCM.DEL ---
L & D Note - General Info Date of Service: 05/04/21 - Delivery Note Labor: Spontaneous, Augmented by Oxytocin Delivery Outcome: Livebirth Infant Delivery Method: Spontaneous Vaginal Delivery-Single Infant Delivery Mode: Spontaneous Presentation: Right Occiput Anterior (SHAVONNE) Nuchal Cord: Present Anesthesia Type: Epidural Amniotic Fluid Description: Clear Episiotomy Type: None Laceration: None Placenta: Intact, Spontaneous Cord: 3 Vessels Estimated Blood Loss: 350 Resuscitation Needed: Yes : Suctioned, Bulb Syringe, Stimulated, Warmed, [place] Used, Warmer Used Score 1 min: 7 Score 5 min: 8 Second Stage Interventions: Reports: Pushing Effectively - General Info Date of Service: 05/04/21 Functional Status: Reports: Pain Controlled - Patient Data Vitals - Most Recent: Last Vital Signs Temp Pulse Resp BP Pulse Ox 100 05/03/21 17:41 Weight - Most Recent: 170 lb Lab Results Last 24 Hours: Laboratory Results - last 24 hr 05/03/21 05/03/21 05/03/21 Range/Units 15:00 15:01 15:15 WBC 6.44 (4.0-11.0) K/uL RBC 4.71 (4.30-5.90) M/uL Hgb 12.3 (12.0-16.0) g/dL Hct 37.2 (36.0-46.0) % MCV 79.0 L (80.0-98.0) fL MCH 26.1 L (27.0-32.0) pg MCHC 33.1 (31.0-37.0) g/dL RDW Std Deviation 56.7 (28.0-62.0) fl RDW Coeff of Joseph 20 H (11.0-15.0) % Plt Count 144 L (150-400) K/uL MPV 11.60 (7.40-12.00) fL Nucleated RBC % 0.0 /100WBC Nucleated RBCs # 0 K/uL POC Glucose (70-99) mg/dL SARS-CoV-2 RNA (JEREMIAH) NEGATIVE (NEGATIVE) Blood Type O POSITIVE Antibody Screen NEGATIVE 05/03/21 05/03/21 05/03/21 Range/Units 15:33 17:57 19:08 WBC (4.0-11.0) K/uL RBC (4.30-5.90) M/uL Hgb (12.0-16.0) g/dL Hct (36.0-46.0) % MCV (80.0-98.0) fL MCH (27.0-32.0) pg MCHC (31.0-37.0) g/dL RDW Std Deviation (28.0-62.0) fl RDW Coeff of Joseph (11.0-15.0) % Plt Count (150-400) K/uL MPV (7.40-12.00) fL Nucleated RBC % /100WBC Nucleated RBCs # K/uL POC Glucose 70 73 75 (70-99) mg/dL SARS-CoV-2 RNA (JEREMIAH) (NEGATIVE) Blood Type Antibody Screen 05/03/21 05/04/21 Range/Units 21:28 00:59 WBC (4.0-11.0) K/uL RBC (4.30-5.90) M/uL Hgb (12.0-16.0) g/dL Hct (36.0-46.0) % MCV (80.0-98.0) fL MCH (27.0-32.0) pg MCHC (31.0-37.0) g/dL RDW Std Deviation (28.0-62.0) fl RDW Coeff of Joseph (11.0-15.0) % Plt Count (150-400) K/uL MPV (7.40-12.00) fL Nucleated RBC % /100WBC Nucleated RBCs # K/uL POC Glucose 76 81 (70-99) mg/dL SARS-CoV-2 RNA (JEREMIAH) (NEGATIVE) Blood Type Antibody Screen Med Orders - Current: Current Medications Butorphanol Tartrate (Butorphanol 1 Mg/Ml Sdv) 1 mg IVPUSH Q1H PRN PRN Reason: Pain (severe 7-10) Carboprost Tromethamine (Carboprost Tromethamine 250 Mcg/1 Ml Amp) 250 mcg IM ASDIRECTED PRN PRN Reason: Post Hemorrhage Oxytocin/Sodium Chloride (Oxytocin 30 Unit/500 Ml-Ns) 30 unit in 500 mls @ 999 mls/hr IV TITRATE MARY CARMEN Tranexamic Acid 1,000 mg/ (Sodium Chloride) 110 mls @ 660 mls/hr IV ONETIME PRN PRN Reason: Bleeding Lactated Ringer's (Ringers, Lactated) 1,000 mls @ 150 mls/hr IV ASDIRECTED MARY CARMEN Last Admin: 05/03/21 23:48 Dose: 150 mls/hr Documented by: Oxytocin/Sodium Chloride (Oxytocin 30 Unit/500 Ml-Ns) 30 unit in 500 mls @ 2 mls/hr IV TITRATE MARY CARMEN; Protocol Last Titration: 05/04/21 02:10 Dose: 24 munits/min, 24 mls/hr Documented by: Lidocaine HCl (Lidocaine 1% 50 Ml Mdv) 50 ml INJECT ONETIME PRN PRN Reason: Laceration repair Methylergonovine Maleate (Methylergonovine 0.2 Mg/1 Ml Amp) 0.2 mg IM ASDIRECTED PRN PRN Reason: Post Hemorrhage Last Admin: 05/04/21 03:31 Dose: 0.2 mg Documented by: Misoprostol (Misoprostol 200 Mcg Tab) 200 mcg PO ONETIME PRN PRN Reason: Post Hemorrhage Nalbuphine HCl (Nalbuphine 10 Mg/1 Ml Vial) 10 mg IVPUSH Q1H PRN PRN Reason: Pain (severe 7-10) Ondansetron HCl (Ondansetron 4 Mg/2 Ml Sdv) 4 mg IVPUSH Q6H PRN PRN Reason: Nausea/Vomiting Sodium Chloride (Sodium Chloride 0.9% 10 Ml Syringe) 10 ml FLUSH ASDIRECTED PRN PRN Reason: Keep Vein Open Sodium Chloride (Sodium Chloride 0.9% 2.5 Ml Syringe) 2.5 ml FLUSH ASDIRECTED PRN PRN Reason: Keep Vein Open Sodium Chloride (Sodium Chloride 0.9% 10 Ml Sdv) 10 ml IV ASDIRECTED PRN PRN Reason: IV Use Sterile Water (Water For Irrigation,Sterile 1,000 Ml Container) 1,000 ml IRR ASDIRECTED PRN PRN Reason: delivery Terbutaline Sulfate (Terbutaline 1 Mg/Ml Sdv) 0.25 mg SUBCUT ASDIRECTED PRN PRN Reason: Tacysystole Discontinued Medications Bupivacaine HCl (Bupivacaine 0.25% 30 Ml Sdv) Confirm Administered Dose 30 ml .ROUTE .STK-MED ONE Stop: 05/03/21 15:47 Ropivacaine (Naropin 0.2%) Confirm Administered Dose 200 mls @ as directed .ROUTE .STK-MED ONE Stop: 05/03/21 15:47 Omeprazole (Omeprazole 20 Mg Cap.Cr) 20 mg PO ONETIME ONE Stop: 05/03/21 23:31 Last Admin: 05/03/21 23:23 Dose: 20 mg Documented by: - Problem List Review Problem List Initiated/Reviewed/Updated: Yes - Assessment Assessment:: Stefany Simth is a 25 yo at 37w1d s/p post day 0. - Plan Plan:: Routine care * GBS negative, O positive, rubella immune * Gestational diabetes diet controlled * PO pain medication ordered PRN * Encourage ambulation * Regular diet as tolerated *
[2021-05-04] MEDS: Acetaminophen 500 MG Tab PO PRN ×3 (05:24→21:59)
[2021-05-04] MEDS: Ibuprofen 800 MG Tab PO PRN ×2 (06:11→16:07)
[2021-05-04] MEDS: Docusate Sodium 100 MG Cap PO PRN ×2 (09:08→21:59)
--- NOTE | 2021-05-04 15:42 | OR ---
SURGEON: Norman Desai MD DATE OF PROCEDURE: 05/04/2021 INDICATION FOR PROCEDURE: A 25-year-old G2, P1-0-0-1 at 37 weeks and 2 days, admitted for labor. The patient presented with regular contractions that started at home and she was found to be 5 cm dilated on admission. This was complicated by GDMA1 that has been well controlled with diet. She has a history of lupus and symptoms had been well controlled during . She also has a history of TIA. She is GBS negative. She desired an epidural for pain control which she received. The heart rate tracing was category 1. After receiving the epidural, her contractions spaced out to every 7 to 10 minutes and she did not make further cervical change. Pitocin was started for augmentation of labor and AROM was performed with clear fluid. She then started to progress and became 8 cm dilated. The tracing started to have deep variable decels to the 70s and 80s. She was repositioned and resuscitative measures performed, and she continued to progress to fully dilated with the urge to push. PREOPERATIVE DIAGNOSES: 1. Fermin intrauterine at 37 weeks and 2 days. 2. Gestational diabetes mellitus A1. 3. History of lupus. 4. Category 2 tracing POSTOPERATIVE DIAGNOSES: 1. Fermin intrauterine at 37 weeks and 2 days. 2. Gestational diabetes mellitus A1. 3. History of lupus. 4. Category 2 tracing PROCEDURE PERFORMED: Normal spontaneous vaginal delivery. PEDIATRIC CLINICAL NURSE SPECIALIST: Sintia Martin, MS-4. ANESTHESIA: Epidural. ANESTHESIOLOGIST: Dr. Daniel Deshpande. FINDINGS: Viable male infant. score of 7 and 8. Weight of 8 pounds. There was a tight nuchal cord that was reduced after delivery. ESTIMATED BLOOD LOSS: 350 mL. DESCRIPTION OF PROCEDURE: The patient pushed with contractions for approximately 20 minutes with good descent. She continued to have deep variables during contractions, which recovered between contractions. She did have terminal bradycardia to the 80s for about 2 minutes prior to delivery. The head delivered in occiput anterior position, restituted ROT. Anterior shoulder delivered easily. A tight nuchal cord was noted and reduced after delivery. The posterior shoulder and body delivered without difficulty. The baby was placed on maternal chest and evaluated by awaiting nursery staff. Baby was pink, crying, and moving all extremities after initial resuscitation. Vagina and perineum was examined and she did not have any lacerations. The umbilical cord was clamped and cut after about 5 minutes and no longer pulsating. The umbilical cord gases were obtained. The placenta was removed with gentle traction on the umbilical cord. It was examined to be intact with 3-vessel cord. Cord gases were obtained. Fundal massage was performed and she was noted to have moderate amount of blood clots. A bimanual exam was performed and evacuated all remaining clots from the uterine cavity, and the lower uterine segment was noted to be boggy. She was given 1 dose of Methergine IM with improvement in bleeding. The patient tolerated the procedure well and was given care instructions. KARLA JACKSON /[id number] MTDD
[2021-05-04] MEDS: Gabapentin 300 MG Cap PO SCH (18:48)
[2021-05-05] MEDS: Gabapentin 300 MG Cap PO SCH ×3 (07:41→21:18)
--- NOTE | 2021-05-05 08:15 | PCM.PNPP ---
<Sintia Brown - Last Filed: 05/05/21 08:10> - General Info Date of Service: 05/05/21 Subjective Update: Patient has concerns of left lower leg numbess, tingling, pain, and decreased range of motion. She notes it starts on the posterior side of her left leg at the level of the knee and goes down to cover the entire ankle and foot. She states she is unable to get up without assistance and must be transported in a wheelchair. Has concerns of being able to go home and not take care of baby due to limited mobility. Minimal pain/cramping in abdomen and vaginal bleeding. going well, supplementing with formula until milk comes in. Denies fever, chest pain, and shortness of breath. Functional Status: Reports: Pain Controlled, Tolerating Diet, Urinating - Review of Systems General: Reports: No Symptoms HEENT: Reports: No Symptoms Pulmonary: Reports: No Symptoms Cardiovascular: Reports: No Symptoms Gastrointestinal: Reports: No Symptoms Genitourinary: Reports: No Symptoms Musculoskeletal: Reports: Leg Pain (Left), Foot Pain (Left) Skin: Reports: No Symptoms Neurological: Reports: Numbness (Left leg), Tingling (Left leg), Difficulty Walking (Due to left leg and foot pain and numbness.) Psychiatric: Reports: No Symptoms - General Info Date of Service: 05/05/21 - Patient Data Vital Signs - Most Recent: Last Vital Signs Temp 98.0 F 05/05/21 07:52 Pulse 82 05/05/21 07:52 Resp 16 05/05/21 07:52 BP 124/73 05/05/21 07:52 Pulse Ox 98 05/05/21 07:52 Weight - Most Recent: 77.111 kg Lab Results - Last 24 Hours: Laboratory Results - last 24 hr 05/05/21 05/05/21 Range/Units 05:24 05:24 Hgb 10.9 L (12.0-16.0) g/dL Hct 33.5 L (36.0-46.0) % Fasting Glucose 93 (74-106) mg/dL Med Orders - Current: Current Medications Acetaminophen (Acetaminophen 500 Mg Tab) 500 mg PO Q4H PRN PRN Reason: Pain (mild 1-3) Acetaminophen (Acetaminophen 500 Mg Tab) 1,000 mg PO Q4H PRN PRN Reason: Pain (mild 1-3) Last Admin: 05/04/21 21:59 Dose: 1,000 mg Documented by: Benzocaine/Menthol (Benzocaine/Menthol 20%-0.5% [place] 78 Gm Cannister) 78 gm TOP ASDIRECTED PRN PRN Reason: Perineal Comfort Measure Bisacodyl (Bisacodyl 10 Mg Supp) 10 mg RECTAL ONETIME PRN PRN Reason: Constipation Carboprost Tromethamine (Carboprost Tromethamine 250 Mcg/1 Ml Amp) 250 mcg IM ASDIRECTED PRN PRN Reason: Post Hemorrhage Docusate Sodium (Docusate Sodium 100 Mg Cap) 100 mg PO Q12H PRN PRN Reason: Constipation Last Admin: 05/04/21 21:59 Dose: 100 mg Documented by: Emollient Ointment (Lanolin 100% Cream 7 Gm Tube) 0 gm TOP ASDIRECTED PRN PRN Reason: Sore Nipples Gabapentin (Gabapentin 300 Mg Cap) 300 mg PO TID [facility] Last Admin: 05/05/21 07:41 Dose: 300 mg Documented by: Oxytocin/Sodium Chloride (Oxytocin 30 Unit/500 Ml-Ns) 30 unit in 500 mls @ 999 mls/hr IV TITRATE [facility] Tranexamic Acid 1,000 mg/ (Sodium Chloride) 110 mls @ 660 mls/hr IV ONETIME PRN PRN Reason: Bleeding Ibuprofen (Ibuprofen 400 Mg Tab) 400 mg PO Q4H PRN PRN Reason: Pain (mild 1-3) Ibuprofen (Ibuprofen 800 Mg Tab) 800 mg PO Q6H PRN PRN Reason: Pain (mild 1-3) Last Admin: 05/04/21 16:07 Dose: 800 mg Documented by: Methylergonovine Maleate (Methylergonovine 0.2 Mg/1 Ml Amp) 0.2 mg IM ASDIRECTED PRN PRN Reason: Post Hemorrhage Last Admin: 05/04/21 03:31 Dose: 0.2 mg Documented by: Misoprostol (Misoprostol 200 Mcg Tab) 200 mcg PO ONETIME PRN PRN Reason: Post Hemorrhage Oxycodone HCl (Oxycodone 5 Mg Tab) 5 mg PO Q2H PRN PRN Reason: Pain (severe 7-10) Witch Mimi (Witch Mimi Medicated Pads 40/Jar) 1 pad TOP ASDIRECTED PRN PRN Reason: comfort care Discontinued Medications Bupivacaine HCl (Bupivacaine 0.25% 30 Ml Sdv) Confirm Administered Dose 30 ml .ROUTE .STK-MED ONE Stop: 05/03/21 15:47 Butorphanol Tartrate (Butorphanol 1 Mg/Ml Sdv) 1 mg IVPUSH Q1H PRN PRN Reason: Pain (severe 7-10) Lactated Ringer's (Ringers, Lactated) 1,000 mls @ 150 mls/hr IV ASDIRECTED MARY CARMEN Last Admin: 05/03/21 23:48 Dose: 150 mls/hr Documented by: Ropivacaine (Naropin 0.2%) Confirm Administered Dose 200 mls @ as directed .ROUTE .Qitio ONE Stop: 05/03/21 15:47 Oxytocin/Sodium Chloride (Oxytocin 30 Unit/500 Ml-Ns) 30 unit in 500 mls @ 2 mls/hr IV TITRATE MARY CARMEN; Protocol Last Titration: 05/04/21 03:10 Dose: 999 munits/min, 999 mls/hr Documented by: Lidocaine HCl (Lidocaine 1% 50 Ml Mdv) 50 ml INJECT ONETIME PRN PRN Reason: Laceration repair Nalbuphine HCl (Nalbuphine 10 Mg/1 Ml Vial) 10 mg IVPUSH Q1H PRN PRN Reason: Pain (severe 7-10) Omeprazole (Omeprazole 20 Mg Cap.Cr) 20 mg PO ONETIME ONE Stop: 05/03/21 23:31 Last Admin: 05/03/21 23:23 Dose: 20 mg Documented by: Ondansetron HCl (Ondansetron 4 Mg/2 Ml Sdv) 4 mg IVPUSH Q6H PRN PRN Reason: Nausea/Vomiting Sodium Chloride (Sodium Chloride 0.9% 10 Ml Syringe) 10 ml FLUSH ASDIRECTED PRN PRN Reason: Keep Vein Open Sodium Chloride (Sodium Chloride 0.9% 2.5 Ml Syringe) 2.5 ml FLUSH ASDIRECTED PRN PRN Reason: Keep Vein Open Sodium Chloride (Sodium Chloride 0.9% 10 Ml Sdv) 10 ml IV ASDIRECTED PRN PRN Reason: IV Use Sterile Water (Water For Irrigation,Sterile 1,000 Ml Container) 1,000 ml IRR ASDIRECTED PRN PRN Reason: delivery Terbutaline Sulfate (Terbutaline 1 Mg/Ml Sdv) 0.25 mg SUBCUT ASDIRECTED PRN PRN Reason: Tacysystole - Infant Interaction Infant Disposition, : [place] in Room with Family Infant Interaction: Holding Infant Infant Feeding: Breastfed ; Nursed Well (Still waiting for milk to come in. Supplementing with formula.) Support Person: Significant Other - Recovery Exam Fundal Tone: Firm Fundal Level: 2 Fingerbreadths Below Umbilicus Fundal Placement: Midline Lochia Amount: Small Lochia Color: Rubra/Red Perineum Description: Intact, Minimal Bruising/Swelling Episiotomy/Laceration: None Bladder Status: Voiding Urinary Elimination: Voided - Exam General: Alert, Oriented, Cooperative, No Acute Distress HEENT: Pupils Equal, Pupils Reactive Neck: Supple Lungs: Clear to Auscultation, Normal Respiratory Effort Cardiovascular: Regular Rate, Regular Rhythm GI/Abdominal Exam: Normal Bowel Sounds, Soft, Non-Tender, No Organomegaly, No Distention Extremities: Leg Pain (Left leg pain with touch.), Limited Range of Motion (Left ankle and left toes.) Skin: Warm, Dry, Intact Wound/Incisions: Healing Well Neurological: Other (Pain to touch, tingling, and numbness on posterior aspect of left leg extending into left ankle and foot. ) Psy/Mental Status: Alert, Normal Affect, Normal Mood - Problem List Review Problem List Initiated/Reviewed/Updated: Yes - Assessment Assessment:: Stefany Smith is a 25 yo at 37w1d s/p post day 1. - Plan Plan:: Routine care * GBS negative, O positive, rubella immune * Gestational diabetes diet controlled * PO pain medication ordered PRN * Continue to monitor for bleeding and symptoms * Pain, numbness, and tingling in left leg persistent since delivery * PT and neurology consult placed * Continue gabapentin to help with leg pain * Regular diet as tolerated * <Etta Scherer - Last Filed: 05/05/21 08:54> - Patient Data Vital Signs - Most Recent: Last Vital Signs Temp 36.7 C 05/05/21 07:52 Pulse 82 05/05/21 07:52 Resp 16 05/05/21 07:52 BP 124/73 05/05/21 07:52 Pulse Ox 98 05/05/21 07:52 Lab Results - Last 24 Hours: Laboratory Results - last 24 hr 05/05/21 05/05/21 Range/Units 05:24 05:24 Hgb 10.9 L (12.0-16.0) g/dL Hct 33.5 L (36.0-46.0) % Fasting Glucose 93 (74-106) mg/dL Med Orders - Current: Current Medications Acetaminophen (Acetaminophen 500 Mg Tab) 500 mg PO Q4H PRN PRN Reason: Pain (mild 1-3) Acetaminophen (Acetaminophen 500 Mg Tab) 1,000 mg PO Q4H PRN PRN Reason: Pain (mild 1-3) Last Admin: 05/04/21 21:59 Dose: 1,000 mg Documented by: Benzocaine/Menthol (Benzocaine/Menthol 20%-0.5% [place] 78 Gm Cannister) 78 gm TOP ASDIRECTED PRN PRN Reason: Perineal Comfort Measure Bisacodyl (Bisacodyl 10 Mg Supp) 10 mg RECTAL ONETIME PRN PRN Reason: Constipation Carboprost Tromethamine (Carboprost Tromethamine 250 Mcg/1 Ml Amp) 250 mcg IM ASDIRECTED PRN PRN Reason: Post Hemorrhage Docusate Sodium (Docusate Sodium 100 Mg Cap) 100 mg PO Q12H PRN PRN Reason: Constipation Last Admin: 05/04/21 21:59 Dose: 100 mg Documented by: Emollient Ointment (Lanolin 100% Cream 7 Gm Tube) 0 gm TOP ASDIRECTED PRN PRN Reason: Sore Nipples Gabapentin (Gabapentin 300 Mg Cap) 300 mg PO TID [facility] Last Admin: 05/05/21 07:41 Dose: 300 mg Documented by: Oxytocin/Sodium Chloride (Oxytocin 30 Unit/500 Ml-Ns) 30 unit in 500 mls @ 999 mls/hr IV TITRATE [facility] Tranexamic Acid 1,000 mg/ (Sodium Chloride) 110 mls @ 660 mls/hr IV ONETIME PRN PRN Reason: Bleeding Ibuprofen (Ibuprofen 400 Mg Tab) 400 mg PO Q4H PRN PRN Reason: Pain (mild 1-3) Ibuprofen (Ibuprofen 800 Mg Tab) 800 mg PO Q6H PRN PRN Reason: Pain (mild 1-3) Last Admin: 05/04/21 16:07 Dose: 800 mg Documented by: Methylergonovine Maleate (Methylergonovine 0.2 Mg/1 Ml Amp) 0.2 mg IM ASDIRECTED PRN PRN Reason: Post Hemorrhage Last Admin: 05/04/21 03:31 Dose: 0.2 mg Documented by: Misoprostol (Misoprostol 200 Mcg Tab) 200 mcg PO ONETIME PRN PRN Reason: Post Hemorrhage Oxycodone HCl (Oxycodone 5 Mg Tab) 5 mg PO Q2H PRN PRN Reason: Pain (severe 7-10) Witch Mimi (Witch Mimi Medicated Pads 40/Jar) 1 pad TOP ASDIRECTED PRN PRN Reason: comfort care Discontinued Medications Bupivacaine HCl (Bupivacaine 0.25% 30 Ml Sdv) Confirm Administered Dose 30 ml .ROUTE .STK-MED ONE Stop: 05/03/21 15:47 Butorphanol Tartrate (Butorphanol 1 Mg/Ml Sdv) 1 mg IVPUSH Q1H PRN PRN Reason: Pain (severe 7-10) Lactated Ringer's (Ringers, Lactated) 1,000 mls @ 150 mls/hr IV ASDIRECTED MARY CARMEN Last Admin: 05/03/21 23:48 Dose: 150 mls/hr Documented by: Ropivacaine (Naropin 0.2%) Confirm Administered Dose 200 mls @ as directed .ROUTE .STK-MED ONE Stop: 05/03/21 15:47 Oxytocin/Sodium Chloride (Oxytocin 30 Unit/500 Ml-Ns) 30 unit in 500 mls @ 2 mls/hr IV TITRATE MARY CARMEN; Protocol Last Titration: 05/04/21 03:10 Dose: 999 munits/min, 999 mls/hr Documented by: Lidocaine HCl (Lidocaine 1% 50 Ml Mdv) 50 ml INJECT ONETIME PRN PRN Reason: Laceration repair Nalbuphine HCl (Nalbuphine 10 Mg/1 Ml Vial) 10 mg IVPUSH Q1H PRN PRN Reason: Pain (severe 7-10) Omeprazole (Omeprazole 20 Mg Cap.Cr) 20 mg PO ONETIME ONE Stop: 05/03/21 23:31 Last Admin: 05/03/21 23:23 Dose: 20 mg Documented by: Ondansetron HCl (Ondansetron 4 Mg/2 Ml Sdv) 4 mg IVPUSH Q6H PRN PRN Reason: Nausea/Vomiting Sodium Chloride (Sodium Chloride 0.9% 10 Ml Syringe) 10 ml FLUSH ASDIRECTED PRN PRN Reason: Keep Vein Open Sodium Chloride (Sodium Chloride 0.9% 2.5 Ml Syringe) 2.5 ml FLUSH ASDIRECTED PRN PRN Reason: Keep Vein Open Sodium Chloride (Sodium Chloride 0.9% 10 Ml Sdv) 10 ml IV ASDIRECTED PRN PRN Reason: IV Use Sterile Water (Water For Irrigation,Sterile 1,000 Ml Container) 1,000 ml IRR ASDIRECTED PRN PRN Reason: delivery Terbutaline Sulfate (Terbutaline 1 Mg/Ml Sdv) 0.25 mg SUBCUT ASDIRECTED PRN PRN Reason: Tacysystole - Interaction Infant Feeding: Bottle Fed - Exam Neurological: Other (Tender to touch left calf and jones. 5/5 muscle strength right lower extremity and left upper leg. 0/5 strength with dorsiflexion and p lantar flexion left foot. Able to move toes, not against pressure.) - Problem List & Annotations (1) Vaginal delivery SNOMED Code(s): 890570068 Code(s): O80 - ENCOUNTER FOR FULL-TERM UNCOMPLICATED DELIVERY Status: Acute Current Visit: Yes (2) Left leg weakness SNOMED Code(s): 931118959, 080179374 Code(s): R29.898 - [facility] SYMPTOMS AND SIGNS INVOLVING THE MUSCULOSKELETAL SYSTEM Status: Acute Current Visit: Yes - My Orders Last 24 Hours: My Active Orders 05/05/21 08:39 Consult to Physical Therapy [PT Evaluation and Treatment] [CONS] Routine Consult to Physician [CONS] Routine 05/05/21 08:40 Notify Provider Consults [RC] ASDIRECTED 05/05/21 08:49 Consult to Case Management/[employer]il Dist[employer] Tender [CONS] Routine - Plan Plan:: I have reviewed and agree with the above. Plan for Neurology and Physical Therapy consultations today for evaluation and treatment. Social work consult as patient is concerned she will have to move to [place] temporarily for assistance with care for when returns to work. Has [place] Medicaid and will need insurance for [place]. Continue Gabapentin until Neurology evaluation. 2-hour GTT . Dispo pending Neurology evaluation.
[2021-05-05] MEDS: Acetaminophen 500 MG Tab PO PRN ×2 (08:48→12:58)
[2021-05-05] MEDS: Ibuprofen 800 MG Tab PO PRN ×2 (08:50→18:45)
--- NOTE | 2021-05-05 12:01 | PCM.CONS ---
H&P History of Present Illness - General Date of Service: 05/05/21 Admit Problem/Dx: Admission Diagnosis/Problem Admission Diagnosis/Problem - History of Present Illness Initial Comments - Free Text/Narative: Consult reason: Left leg weakness, numbness following delivery She had epidural for pain control. She received Pitocin. She pushed for 15 minutes, no stirrups. She was in lithotomy position while she was pushed, feet back on bed to rest in between. She had baby yesterday morning at 3 am. Within an hour of epidural removal, sensation in abdomen and right lower limb sensation returned. The left lower limb did not. She notes painful pins and needed posterior distal leg and ankle, plantar foot and toes. . No change in symptoms from yesterday to today. Pressure on the bottom of foot with attempts at walking is painful. No back pain. In 2018, she lost vision in her left eye for several month. She saw a neurologist and had brain MRI. No etiology was found and vision returned. She has a history of rare episodes of chest pain, sob that has been attributed to possible lupus. She has prednisone as needed. If she takes prednisone, the symptoms improve within a couple days. No history of neuropathy, migraine, balance problems, vertigo. She had a lot of sciatic pain down the back of her legs during . Uterine Pain Score (Numeric/FACES): 2 - Related Data Allergies/Adverse Reactions: Allergies Allergy/AdvReac Type Severity Reaction Status Date / Time codeine Allergy Abdominal Verified 05/03/21 14:58 Pain Latex, Natural Rubber Allergy Itching Verified 05/03/21 14:59 shellfish derived Allergy Anaphylactic Verified 05/03/21 14:58 Shock Sulfa (Sulfonamide Allergy Anxiety Verified 05/03/21 14:58 Antibiotics) Home Medications: Home Meds Aspirin 81 mg PO DAILY 01/13/21 [History] Pnv No.95/Ferrous Fum/Folic AC [ Caplet] 1 tab PO DAILY 01/13/21 [History] Ferrous Sulfate, Dried [Iron] 160 mg PO DAILY 04/05/21 [History] Magnesium 250 mg PO DAILY 04/05/21 [History] Past Medical History - Past Health History Medical/Surgical History: Denies Medical/Surgical History HEENT History: Reports: None Cardiovascular History: Reports: Other (See Below) Other Cardiovascular History: costochrondritis, pleurisy Gastrointestinal History: Reports: Chronic Constipation, Other (See Below) Other Gastrointestinal History: stomach ulcer, heartburn in Genitourinary History: Reports: UTI, Recurrent RECOVERY SPECIALIST 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 Stress fracture: left foot. Neurological History: Reports: Headaches, Chronic, Migraines, TIA Psychiatric History: Reports: Anxiety, Depression, Other (See Below) Other Psychiatric History: depression after previous baby. Endocrine/Metabolic History: Reports: Diabetes, Gestational Hematologic History: Reports: Anemia, Iron Deficiency, Other (See Below) Other Hematologic History: anemia and iron deficiency in Immunologic History: Reports: SLE - Infectious Disease History Infectious Disease History: Reports: Chicken Pox, Other (See Below) Other Infectious Disease History: scabies - Past Surgical History Cardiovascular Surgical History: Reports: None Social & Family History - Family History Family Medical History: No Pertinent Family History - Tobacco Use Tobacco Use Status *Q: Never Tobacco User Second Hand Smoke Exposure: No - Caffeine Use Caffeine Use: Reports: Coffee - Recreational Drug Use Recreational Drug Use: No H&P Review of Systems - Review of Systems: Review Of Systems: Comprehensive ROS is negative, except as noted in HPI. Exam - Exam Exam: See Below - Vital Signs Vital Signs: Last Vital Signs Temp 36.7 C 05/05/21 07:52 Pulse 82 05/05/21 07:52 Resp 16 05/05/21 07:52 BP 124/73 05/05/21 07:52 Pulse Ox 98 05/05/21 07:52 Weight: 77.111 kg - Exam Physical Exam Comments:: Neurological: Mental Status: General: Normal activity, good hygiene, appropriate appearance. Level of consciousness: Awake, alert. Orientation: Oriented to person, place, time and situation. Insight/Judgement: Normal. Cranial Nerves: Pupils equally round and reactive to light. Visual herrera full to confrontation. Gaze conjugate, EOMI. Sensation intact and symmetric to light touch. Facial strength is full and symmetric. Palate elevates symmetrically. Normal shrug bilaterally. Tongue protrudes midline Motor: Normal tone in all groups. No drift. Power using MRC scale and R/L notation as follows: Deltoid 5/5, biceps 5/5, triceps 5/5, wrist extensors 5/5, wrist flexors 5/5, finger extensors 5/5, finger flexors 5/5, FDI 5/5, hip flexors 5/>4+ with breakway, hip abductors 5/5, hip adductors 5/5, knee extensors 5/ at least 4/5., knee flexors 5/2, ankle dorsiflexors 5/2, ankle plantar flexors 5/0 Sensation: Sensation is decreased to temp plantar foot. Deep tendon reflexes: Normoactive throughout except left ankle jerk absent. Gait: Walks with walker, left foot drop, halting steps due to pain. - Patient Data Lab Results Last 24 hrs: Laboratory Results - last 24 hr 05/05/21 05/05/21 Range/Units 05:24 05:24 Hgb 10.9 L (12.0-16.0) g/dL Hct 33.5 L (36.0-46.0) % Fasting Glucose 93 (74-106) mg/dL Result Diagrams: 05/05/21 05:24 Sepsis Event Note - Evaluation Sepsis Screening Result: No Definite Risk - Focused Exam Vital Signs: Vital Signs Temp Pulse Resp BP Pulse Ox 05/05/21 07:52 36.7 C 82 16 124/73 98 05/05/21 04:00 35.7 C L 81 18 107/67 98 Consult PN Assessment/Plan Procedures: Procedures ASSAY GLUCOSE BLOOD QUANT (01/13/21) ASSAY OF PROTEIN URINE (02/27/21) ASSAY OF URINE CREATININE (02/27/21) BETA-2 GLYCOPROTEIN ANTIBODY (01/02/21) TATUM DNA DIR PROBE (02/27/21) CARDIOLIPIN ANTIBODY EA IG (01/02/21) COMPLEMENT ANTIGEN (02/27/21) COMPLEMENT TOTAL (CH50) (02/27/21) COMPLETE CBC AUTOMATED (02/27/21) COMPLETE CBC W/AUTO DIFF WBC (03/30/21) COMPREHEN METABOLIC PANEL (02/27/21) DNA ANTIBODY [place] (02/27/21) ELECTROCARDIOGRAM TRACING (01/13/21) EMERGENCY DEPT VISIT (02/11/21) EMERGENCY DEPT VISIT (02/09/21) EXTREMITY STUDY (02/09/21) NON-STRESS TEST (04/05/21) HOPE VAG DNA DIR PROBE (02/27/21) GLUCOSE TEST (02/27/21) GLUCOSE TOLERANCE TEST (GTT) (03/03/21) HEPATITIS C AB TEST (01/03/21) HYDRATE IV INFUSION ADD-ON (04/05/21) NUCLEAR ANTIGEN ANTIBODY (01/02/21) ROUTINE VENIPUNCTURE (02/11/21) JAROCHO VIPER VENOM DILUTED (01/02/21) SARS-COV-2 COVID-19 AMP PRB (04/05/21) STREP B DNA AMP PROBE (04/27/21) SYPHILIS TEST NON-TREP QUAL (02/27/21) THER/PROPH/DIAG INJ IV PUSH (04/05/21) THER/PROPH/DIAG IV INF ADDON (04/06/21) THER/PROPH/DIAG IV INF INIT (04/06/21) THROMBOPLASTIN TIME PARTIAL (01/02/21) TRICHOMONAS VAGIN DIR PROBE (02/27/21) URINALYSIS AUTO W/SCOPE (04/05/21) URINE CULTURE/COLONY COUNT (04/27/21) X-RAY EXAM OF FOOT (02/09/21) (1) Neuropathy of left sciatic nerve SNOMED Code(s): 20532224 Code(s): G57.02 - LESION OF SCIATIC NERVE, LEFT LOWER LIMB Current Visit: Yes Assessment:: Impression 25 year old woman with weakness and painful paresthesias in left lower limb most consistent with sciatic neuropathy, peripartum without prolonged lithotomy position. Epidural hematoma is unlikely, but would car changer, so I ordered a CT L spine Prognosis reviewed. Symptoms expected to improve within 6 weeks. If not improving, NCS/EMG is recommended. We could do that in specialty clinic if she is here, or I can send a referral to [place] if she ends up needing to stay there. Agree with gabapentin for pain Problem List Initiated/Reviewed/Updated: Yes My Orders Last 24 Hours: My Active Orders 05/05/21 11:06 Lumbar Spine wo Cont [CT] Routine
--- NOTE | 2021-05-05 13:54 | CT ---
INDICATION: Left leg weakness and numbness status post childbirth. TECHNIQUE: CT lumbar spine without contrast. COMPARISON: None. FINDINGS: Vertebrae: Alignment is normal. There are no fractures or suspicious bony lesions. Punctate foci of air are in the spinal canal at the level of L2-3. Discs and facet joints: Disc spaces and facets are within normal limits. Foramina and spinal canal are patent. Extraspinal findings: Prevertebral soft tissues and visualized retroperitoneum are unremarkable. uterus. IMPRESSION: Small foci of air within the spinal canal at L2-3 is presumably secondary to a spinal procedure. No sign of hematoma. Otherwise unremarkable lumbar spine. No finding to explain left leg numbness and weakness. Please note that all CT scans at this facility use dose modulation, iterative reconstruction, and/or weight-based dosing when appropriate to reduce radiation dose to as low as reasonably achievable. Dictated by Sandro Clemente MD @ 05/05/2021 1:53:[address] Sandro Clemente @ May 05 2021 1:53PM
[2021-05-05] MEDS: Docusate Sodium 100 MG Cap PO PRN (21:18)
[2021-05-06] MEDS: Gabapentin 300 MG Cap PO SCH (06:36)
--- NOTE | 2021-05-06 08:52 | PCM.PNPP ---
<Sintia Brown - Last Filed: 05/06/21 08:39> - General Info Date of Service: 05/06/21 Subjective Update: Patient doing well this morning. States she has minimal to no pain in her left leg. Still feels that her left foot and ankle feel unstable when walking. Is able to ambulate with significant other as support. Denies difficultly with urination or bowels. Denies chest pain, shortness of breath, lightheadedness, lower leg pain or swelling. Functional Status: Reports: Pain Controlled - Review of Systems General: Reports: No Symptoms HEENT: Reports: No Symptoms Pulmonary: Reports: No Symptoms Cardiovascular: Reports: No Symptoms Gastrointestinal: Reports: No Symptoms Genitourinary: Reports: No Symptoms Musculoskeletal: Reports: No Symptoms Skin: Reports: No Symptoms Neurological: Reports: Numbness (In left foot and ankle), Difficulty Walking (Due to decreased ROM in left ankle) Psychiatric: Reports: No Symptoms - General Info Date of Service: 05/06/21 - Patient Data Vital Signs - Most Recent: Last Vital Signs Temp 97.9 F 05/06/21 07:59 Pulse 75 05/06/21 07:59 Resp 18 05/06/21 07:59 BP 114/75 05/06/21 07:59 Pulse Ox 98 05/06/21 07:59 Weight - Most Recent: 77.111 kg Med Orders - Current: Current Medications Acetaminophen (Acetaminophen 500 Mg Tab) 500 mg PO Q4H PRN PRN Reason: Pain (mild 1-3) Acetaminophen (Acetaminophen 500 Mg Tab) 1,000 mg PO Q4H PRN PRN Reason: Pain (mild 1-3) Last Admin: 05/05/21 12:58 Dose: 1,000 mg Documented by: Benzocaine/Menthol (Benzocaine/Menthol 20%-0.5% [place] 78 Gm Cannister) 78 gm TOP ASDIRECTED PRN PRN Reason: Perineal Comfort Measure Bisacodyl (Bisacodyl 10 Mg Supp) 10 mg RECTAL ONETIME PRN PRN Reason: Constipation Carboprost Tromethamine (Carboprost Tromethamine 250 Mcg/1 Ml Amp) 250 mcg IM ASDIRECTED PRN PRN Reason: Post Hemorrhage Docusate Sodium (Docusate Sodium 100 Mg Cap) 100 mg PO Q12H PRN PRN Reason: Constipation Last Admin: 05/05/21 21:18 Dose: 100 mg Documented by: Emollient Ointment (Lanolin 100% Cream 7 Gm Tube) 0 gm TOP ASDIRECTED PRN PRN Reason: Sore Nipples Gabapentin (Gabapentin 300 Mg Cap) 300 mg PO TID [facility] Last Admin: 05/06/21 06:36 Dose: 300 mg Documented by: Oxytocin/Sodium Chloride (Oxytocin 30 Unit/500 Ml-Ns) 30 unit in 500 mls @ 999 mls/hr IV TITRATE [facility] Tranexamic Acid 1,000 mg/ (Sodium Chloride) 110 mls @ 660 mls/hr IV ONETIME PRN PRN Reason: Bleeding Ibuprofen (Ibuprofen 400 Mg Tab) 400 mg PO Q4H PRN PRN Reason: Pain (mild 1-3) Ibuprofen (Ibuprofen 800 Mg Tab) 800 mg PO Q6H PRN PRN Reason: Pain (mild 1-3) Last Admin: 05/05/21 18:45 Dose: 800 mg Documented by: Methylergonovine Maleate (Methylergonovine 0.2 Mg/1 Ml Amp) 0.2 mg IM ASDIRECTED PRN PRN Reason: Post Hemorrhage Last Admin: 05/04/21 03:31 Dose: 0.2 mg Documented by: Misoprostol (Misoprostol 200 Mcg Tab) 200 mcg PO ONETIME PRN PRN Reason: Post Hemorrhage Oxycodone HCl (Oxycodone 5 Mg Tab) 5 mg PO Q2H PRN PRN Reason: Pain (severe 7-10) Witch Mimi (Witch Mimi Medicated Pads 40/Jar) 1 pad TOP ASDIRECTED PRN PRN Reason: comfort care Discontinued Medications Bupivacaine HCl (Bupivacaine 0.25% 30 Ml Sdv) Confirm Administered Dose 30 ml .ROUTE .STK-MED ONE Stop: 05/03/21 15:47 Butorphanol Tartrate (Butorphanol 1 Mg/Ml Sdv) 1 mg IVPUSH Q1H PRN PRN Reason: Pain (severe 7-10) Lactated Ringer's (Ringers, Lactated) 1,000 mls @ 150 mls/hr IV ASDIRECTED MARY CARMEN Last Admin: 05/03/21 23:48 Dose: 150 mls/hr Documented by: Ropivacaine (Naropin 0.2%) Confirm Administered Dose 200 mls @ as directed .ROUTE .STK-MED ONE Stop: 05/03/21 15:47 Oxytocin/Sodium Chloride (Oxytocin 30 Unit/500 Ml-Ns) 30 unit in 500 mls @ 2 mls/hr IV TITRATE MARY CARMEN; Protocol Last Titration: 05/04/21 03:10 Dose: 999 munits/min, 999 mls/hr Documented by: Lidocaine HCl (Lidocaine 1% 50 Ml Mdv) 50 ml INJECT ONETIME PRN PRN Reason: Laceration repair Nalbuphine HCl (Nalbuphine 10 Mg/1 Ml Vial) 10 mg IVPUSH Q1H PRN PRN Reason: Pain (severe 7-10) Omeprazole (Omeprazole 20 Mg Cap.Cr) 20 mg PO ONETIME ONE Stop: 05/03/21 23:31 Last Admin: 05/03/21 23:23 Dose: 20 mg Documented by: Ondansetron HCl (Ondansetron 4 Mg/2 Ml Sdv) 4 mg IVPUSH Q6H PRN PRN Reason: Nausea/Vomiting Sodium Chloride (Sodium Chloride 0.9% 10 Ml Syringe) 10 ml FLUSH ASDIRECTED PRN PRN Reason: Keep Vein Open Sodium Chloride (Sodium Chloride 0.9% 2.5 Ml Syringe) 2.5 ml FLUSH ASDIRECTED PRN PRN Reason: Keep Vein Open Sodium Chloride (Sodium Chloride 0.9% 10 Ml Sdv) 10 ml IV ASDIRECTED PRN PRN Reason: IV Use Sterile Water (Water For Irrigation,Sterile 1,000 Ml Container) 1,000 ml IRR ASDIRECTED PRN PRN Reason: delivery Terbutaline Sulfate (Terbutaline 1 Mg/Ml Sdv) 0.25 mg SUBCUT ASDIRECTED PRN PRN Reason: Tacysystole - Interaction Disposition, : in Room with Family Infant Interaction: Holding Infant Feeding: Breastfed ; Nursed Well (Supplementing with formula when needed) Support Person: Significant Other - Recovery Exam Fundal Tone: Firm Fundal Level: 2 Fingerbreadths Below Umbilicus Fundal Placement: Midline Lochia Amount: Scant Lochia Color: Rubra/Red Perineum Description: Intact, Minimal Bruising/Swelling Episiotomy/Laceration: None Bladder Status: Voiding Urinary Elimination: Voided - Exam General: Alert, Oriented HEENT: Pupils Equal, Pupils Reactive Neck: Supple Lungs: Clear to Auscultation, Normal Respiratory Effort Cardiovascular: Regular Rate, Regular Rhythm GI/Abdominal Exam: Soft, Non-Tender, No Distention Extremities: Normal Inspection, Non-Tender, Pedal Edema (Trace), Limited Range of Motion (Decreased dorsiflexion left ankle) Skin: Warm, Dry, Intact Wound/Incisions: Healing Well Neurological: No New Focal Deficit Psy/Mental Status: Alert, Normal Affect, Normal Mood - Problem List Review Problem List Initiated/Reviewed/Updated: Yes - Assessment Assessment:: Stefany Smith is a 25 yo at 37w1d s/p post day 2. - Plan Plan:: Routine care * GBS negative, Rubella immune, O positive * complications include gestational diabetes diet controlled * Plan for 2-hour GTT * Minimal bleeding, continue to monitor bleeding and symptoms * Patient still having decreased ROM in left ankle, encourage strengthening exercises and ambulation * Continue Gabapentin * Physical therapy treatment today * with supplemental formula * Plan for discharge today pending patient and status * Follow up visit 4 weeks <Etta Scherer - Last Filed: 05/06/21 09:17> - Patient Data Vital Signs - Most Recent: Last Vital Signs Temp 36.6 C 05/06/21 07:59 Pulse 75 05/06/21 07:59 Resp 18 05/06/21 07:59 BP 114/75 05/06/21 07:59 Pulse Ox 98 05/06/21 07:59 Med Orders - Current: Current Medications Acetaminophen (Acetaminophen 500 Mg Tab) 500 mg PO Q4H PRN PRN Reason: Pain (mild 1-3) Acetaminophen (Acetaminophen 500 Mg Tab) 1,000 mg PO Q4H PRN PRN Reason: Pain (mild 1-3) Last Admin: 05/05/21 12:58 Dose: 1,000 mg Documented by: Benzocaine/Menthol (Benzocaine/Menthol 20%-0.5% [place] 78 Gm Cannister) 78 gm TOP ASDIRECTED PRN PRN Reason: Perineal Comfort Measure Bisacodyl (Bisacodyl 10 Mg Supp) 10 mg RECTAL ONETIME PRN PRN Reason: Constipation Carboprost Tromethamine (Carboprost Tromethamine 250 Mcg/1 Ml Amp) 250 mcg IM ASDIRECTED PRN PRN Reason: Post Hemorrhage Docusate Sodium (Docusate Sodium 100 Mg Cap) 100 mg PO Q12H PRN PRN Reason: Constipation Last Admin: 05/05/21 21:18 Dose: 100 mg Documented by: Emollient Ointment (Lanolin 100% Cream 7 Gm Tube) 0 gm TOP ASDIRECTED PRN PRN Reason: Sore Nipples Gabapentin (Gabapentin 300 Mg Cap) 300 mg PO TID [facility] Last Admin: 05/06/21 06:36 Dose: 300 mg Documented by: Oxytocin/Sodium Chloride (Oxytocin 30 Unit/500 Ml-Ns) 30 unit in 500 mls @ 999 mls/hr IV TITRATE [facility] Tranexamic Acid 1,000 mg/ (Sodium Chloride) 110 mls @ 660 mls/hr IV ONETIME PRN PRN Reason: Bleeding Ibuprofen (Ibuprofen 400 Mg Tab) 400 mg PO Q4H PRN PRN Reason: Pain (mild 1-3) Ibuprofen (Ibuprofen 800 Mg Tab) 800 mg PO Q6H PRN PRN Reason: Pain (mild 1-3) Last Admin: 05/05/21 18:45 Dose: 800 mg Documented by: Methylergonovine Maleate (Methylergonovine 0.2 Mg/1 Ml Amp) 0.2 mg IM ASDIRECTED PRN PRN Reason: Post Hemorrhage Last Admin: 05/04/21 03:31 Dose: 0.2 mg Documented by: Misoprostol (Misoprostol 200 Mcg Tab) 200 mcg PO ONETIME PRN PRN Reason: Post Hemorrhage Oxycodone HCl (Oxycodone 5 Mg Tab) 5 mg PO Q2H PRN PRN Reason: Pain (severe 7-10) Witch Mimi (Witch Mimi Medicated Pads 40/Jar) 1 pad TOP ASDIRECTED PRN PRN Reason: comfort care Discontinued Medications Bupivacaine HCl (Bupivacaine 0.25% 30 Ml Sdv) Confirm Administered Dose 30 ml .ROUTE .STK-MED ONE Stop: 05/03/21 15:47 Butorphanol Tartrate (Butorphanol 1 Mg/Ml Sdv) 1 mg IVPUSH Q1H PRN PRN Reason: Pain (severe 7-10) Lactated Ringer's (Ringers, Lactated) 1,000 mls @ 150 mls/hr IV ASDIRECTED [facility] Last Admin: 05/03/21 23:48 Dose: 150 mls/hr Documented by: Ropivacaine (Naropin 0.2%) Confirm Administered Dose 200 mls @ as directed .ROUTE .STK-MED ONE Stop: 05/03/21 15:47 Oxytocin/Sodium Chloride (Oxytocin 30 Unit/500 Ml-Ns) 30 unit in 500 mls @ 2 mls/hr IV TITRATE MARY CARMEN; Protocol Last Titration: 05/04/21 03:10 Dose: 999 munits/min, 999 mls/hr Documented by: Lidocaine HCl (Lidocaine 1% 50 Ml Mdv) 50 ml INJECT ONETIME PRN PRN Reason: Laceration repair Nalbuphine HCl (Nalbuphine 10 Mg/1 Ml Vial) 10 mg IVPUSH Q1H PRN PRN Reason: Pain (severe 7-10) Omeprazole (Omeprazole 20 Mg Cap.Cr) 20 mg PO ONETIME ONE Stop: 05/03/21 23:31 Last Admin: 05/03/21 23:23 Dose: 20 mg Documented by: Ondansetron HCl (Ondansetron 4 Mg/2 Ml Sdv) 4 mg IVPUSH Q6H PRN PRN Reason: Nausea/Vomiting Sodium Chloride (Sodium Chloride 0.9% 10 Ml Syringe) 10 ml FLUSH ASDIRECTED PRN PRN Reason: Keep Vein Open Sodium Chloride (Sodium Chloride 0.9% 2.5 Ml Syringe) 2.5 ml FLUSH ASDIRECTED PRN PRN Reason: Keep Vein Open Sodium Chloride (Sodium Chloride 0.9% 10 Ml Sdv) 10 ml IV ASDIRECTED PRN PRN Reason: IV Use Sterile Water (Water For Irrigation,Sterile 1,000 Ml Container) 1,000 ml IRR ASDIRECTED PRN PRN Reason: delivery Terbutaline Sulfate (Terbutaline 1 Mg/Ml Sdv) 0.25 mg SUBCUT ASDIRECTED PRN PRN Reason: Tacysystole - Exam Extremities: Limited Range of Motion (Decreased dorsiflexion left ankle; able to dorsiflex without issue on second evaluation) - Problem List & Annotations (1) Vaginal delivery SNOMED Code(s): 901316201 Code(s): O80 - ENCOUNTER FOR FULL-TERM UNCOMPLICATED DELIVERY Status: Acute Current Visit: Yes (2) Left leg weakness SNOMED Code(s): 333603275, 902663260 Code(s): R29.898 - OTH SYMPTOMS AND SIGNS INVOLVING THE MUSCULOSKELETAL SYSTEM Status: Acute Current Visit: Yes - My Orders Last 24 Hours: My Active Orders 05/05/21 08:39 Consult to Physical Therapy [PT Evaluation and Treatment] [CONS] Routine Consult to Physician [CONS] Routine 05/05/21 08:40 Notify Provider Consults [RC] ASDIRECTED 05/05/21 08:49 Consult to Case Management/Slab Miller Operator [CONS] Routine 05/06/21 09:15 Ready for Discharge [RC] PER UNIT ROUTINE - Plan Plan:: I have reviewed and agree with the above. Physical therapy to see patient prior to discharge this morning. Recommended AFO brace not available, will discuss alternative options with PT. Will continue Gabapentin for nerve pain.
== END 2021-05-06 14:35 | disposition home or self-care (01) | DRG 806 ==
LOC: MW.OBCHECK 14:42 → MW.OB 14:44 → MW.OBCHECK 15:01 → MW.OB 15:01 → OBSVTOIN 05-04 03:08 → MW.OB 05-04 09:34
PROVIDERS: ADMIT Obstetrics & Gynecology; ATTEND Obstetrics & Gynecology
PROC: 10E0XZZ Delivery of Products of Conception, External Approach (ICD-10-PCS; principal; 2021-05-04)
PROC: 10907ZC Drainage of Amniotic Fluid, Therapeutic from Products of Conception, Via Natural or Artificial Opening (ICD-10-PCS; 2021-05-04)
PROC: 3E0R3BZ Introduction of Anesthetic Agent into Spinal Canal, Percutaneous Approach (ICD-10-PCS; 2021-05-04)
PROC: 00HU33Z Insertion of Infusion Device into Spinal Canal, Percutaneous Approach (ICD-10-PCS; 2021-05-04)
DX: O24.420 Gestational diabetes mellitus in childbirth, diet controlled (principal); O99.354 Diseases of the nervous system complicating childbirth; Z37.0 Single live birth; Z3A.37 37 weeks gestation of pregnancy; Z20.822 Contact with and (suspected) exposure to COVID-19; O69.1XX0 Labor and delivery complicated by cord around neck, with compression, not applicable or unspecified; G57.02 Lesion of sciatic nerve, left lower limb; O99.02 Anemia complicating childbirth; D64.9 Anemia, unspecified
CPT/HCPCS: 01967; 36415; 59025; 59409; 72131; 72131-26; 82803; 82947; 85014; 85018; 85027; 86850; 86900; 86901; 97162-GP; A9270-GY; J2210; J2590; J2795; J3490; J7120; U0002

== ENCOUNTER 2021-08-06 19:28 | Emergency (ER) | payer MEDICAID ==
[2021-08-06] MEDS ORDERED: Sodium Chloride 0.9% 2.5 ML Syringe FLUSH PRN (20:03)
[2021-08-06] MEDS ORDERED: Sodium Chloride 0.9% 10 ML Syringe FLUSH PRN (20:03)
[2021-08-06] MEDS ORDERED: Ondansetron 4 MG/2 ML SDV IVPUSH ONE (20:05)
[2021-08-06] MEDS ORDERED: Sodium Chloride 0.9% 1,000 ML IV ONE (20:05)
[2021-08-06] MEDS ORDERED: Ketorolac 30 MG/ML SDV IVPUSH ONE (20:05)
--- NOTE | 2021-08-06 20:05 | EDM.PDOC ---
ED HPI GENERAL MEDICAL PROBLEM - General Chief Complaint: Abdominal Pain Stated Complaint: LOWER PELVIC PAIN Time Seen by Provider: 08/06/21 19:31 Source of Information: Reports: Patient History Limitations: Reports: No Limitations - History of Present Illness INITIAL COMMENTS - FREE TEXT/NARRATIVE: HISTORY AND PHYSICAL: History of present illness: The patient is a 25-year-old female who presents to the emergency department with complaints of right lower abdominal pain that started around 4 PM today. The patient states that her pain generally goes across her lower abdomen. Patient states that when she bears down to have a bowel movement she had pain. She states that when she urinates she has abdominal pain but no dysuria. The patient does have slight nausea associated with the pain. She denies any kind of constipation or diarrhea. The patient states that she had a similar pain like this in 2019 when she had a kidney stone. The patient had an vaginal delivery approximately 3 months ago and her periods have been irregular. Patient denies any fever, chills, headache, change in vision, syncope or near syncope. Denies any chest pain, back pain, shortness of breath or cough. Has not noted any blood in urine or stool. Patient has been eating and drinking appropriately. Patient had a previous cholecystectomy and appendectomy. Review of systems: As per history of present illness and below otherwise all systems reviewed and negative. Past medical history: As per history of present illness and as reviewed below otherwise noncontributory. Surgical history: As per history of present illness and as reviewed below otherwise noncontributory. Social history: See social history for further information Family history: As per history of present illness and as reviewed below otherwise noncontributory. Physical exam: General: Well developed and well nourished. Alert and orientated x 3. Nontoxic in appearance and in no acute distress. Vital signs are stable and have been reviewed by me. Nursing notes were reviewed. HEENT: Atraumatic, normocephalic, pupils equal and reactive bilaterally, negative for conjunctival pallor or scleral icterus, mucous membranes moist, TMs normal bilaterally, throat clear, neck supple, nontender, trachea midline. No drooling or trismus noted. No meningeal signs. No hot potato voice noted. Lungs: Clear to auscultation bilaterally. No wheezes, rales, or rhonchi. Chest nontender. Normal work of breathing, no accessory muscles used. Heart: S1S2, regular rate and rhythm without overt murmur, gallops, or rubs. No JVD. No peripheral edema Abdomen: Soft, nondistended, RLQ & LLQ tenderness. Normoactive bowel sounds. Negative for masses. Positive for bilateral costovertebral tenderness. Skin: Intact, warm, dry. No lesions or rashes noted. Hematologic: No petechiae or purpra. Mucosa appropriate color and normal nail bed color and refill. Extremities: Atraumatic, moves all extremities per self without difficulty or deficits, negative for cords or calf pain. Neurovascular unremarkable. Neuro: Awake, alert, oriented. Cranial nerves II through XII unremarkable. Cerebellum unremarkable. Motor and sensory unremarkable throughout. Exam nonfocal. Psychiatric: Mood and affect are appropriate. Normal thought process. Answering questions appropriately. Notes: *This patient was seen and evaluated during the 2019 SARS-CoV-2 novel coronavirus pandemic period. Community viral transmission is ongoing at time of this encounter and the emergency department is operating under pandemic response procedures. As stated above the patient is a 25-year-old female who presents to the emergency department with complaints of right lower abdominal pain that extends across to her lower abdomen that started around 4 PM today. Patient stated that she remembers having a similar pain when she had a kidney stone in 2019. The patient does have CVA tenderness bilaterally. I have ordered a CBC, CMP, urinalysis, urine hCG, abdominal/pelvic CT. I will treat the patient's discomfort with IV fluids, Toradol and Zofran. Patient is agreeable with this plan. The patient CBC, CMP and urinalysis are unremarkable. The patient's urine hCG is negative. The abdominal pelvis CT IMPRESSION: 1. Unremarkable with no CT correlate for the patient`s symptoms seen. The patient states that her pain is much better after receiving the IV fluids, Toradol and Zofran. I explained to the patient that I do not have a definitive reason for her abdominal pain. It could be muscular in nature as this happened right after she picked up her child and put in in the bed. I instructed the patient that she needs to follow-up with her primary care provider and if the pain was uncontrollable return to the emergency department. I did place the patient's name on the follow-up primary care list. Provide the patient with a prescription for Zofran 4 mg ODT in case the patient's nausea would return tomorrow. The patient is aware of this. The patient is agreeable with this discharge plan I have talked with the patient about today's findings, in addition to providing specific details for plan of care. Reassessment at the time of disposition demonstrates that the patient is in no acute distress. The patient is stable for discharge, counseling was provided and we discussed in great detail signs and symptoms that would prompt them to return to the Emergency Department. Medication, follow up and supportive care measures were reviewed and discussed. Voices understanding and is agreeable to plan of care. Denies any further questions or concerns at this time. Diagnostics: CBC, CMP, urinalysis, urine hCG, abdominal/pelvic CT Therapeutics: IV fluids, Toradol, Zofran Prescription: Zofran 4 mg ODT p.o. every 6 hours as needed #10 Impression: Abdominal pain Plan: 1. You were evaluated today on an emergent basis. Your abdominal pain was evaluated with blood work which was essentially normal and an abdominal/pelvis CT which was also normal. I have sent a prescription for Zofran 4 mg ODT every 6 hours for nausea if you develop that tomorrow. The prescription was sent to the pharmacy. I put your name on the primary care list for follow-up. Someone will call you with a follow-up appointment. If you do not hear from the hospital tomorrow please call and make a follow-up appointment with your primary care provider. If you are unable to deal with the pain or the Tylenol and Motrin doesn't control it please return to the emergency department for further evaluation. 2. You can alternate Tylenol and ibuprofen as needed for pain and fever management. 3. We encourage you to follow up with your primary care provider and/or recommended specialist in the next few days for re-evaluation and further c are/management. 4. If your symptoms should worsen, new symptoms develop or any of the signs and symptoms we discussed should arise please return to the emergency room or call 911 (if needed). Definitive disposition and diagnosis as appropriate pending reevaluation and review of above. Right Lower Abdomen Pain Score (Numeric/FACES): 6 - Related Data Allergies Allergy/AdvReac Type Severity Reaction Status Date / Time codeine Allergy Abdominal Verified 05/03/21 14:58 Pain Latex, Natural Rubber Allergy Itching Verified 05/03/21 14:59 shellfish derived Allergy Anaphylactic Verified 05/03/21 14:58 Shock Sulfa (Sulfonamide Allergy Anxiety Verified 05/03/21 14:58 Antibiotics) Home Meds: Home Meds Ondansetron [Zofran ODT] 4 mg PO Q6H PRN #10 tab.dis 08/06/21 [Rx] buPROPion [buPROPion XL] 150 mg PO DAILY 08/06/21 [History] Past Medical History - Past Health History Medical/Surgical History: Denies Medical/Surgical History HEENT History: Reports: Impaired Vision Cardiovascular History: Reports: Other (See Below) Other Cardiovascular History: costochrondritis, pleurisy Gastrointestinal History: Reports: Chronic Constipation, Other (See Below) Other Gastrointestinal History: stomach ulcer, heartburn in Genitourinary History: Reports: Renal Calculus, UTI, Recurrent SOD CUTTER 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 Stress fracture: left foot. Neurological History: Reports: Headaches, Chronic, Migraines, TIA Psychiatric History: Reports: Anxiety, Depression, Other (See Below) Other Psychiatric History: depression after previous baby. Endocrine/Metabolic History: Reports: Diabetes, Gestational Hematologic History: Reports: Anemia, Iron Deficiency, Other (See Below) Other Hematologic History: anemia and iron deficiency in Immunologic History: Reports: SLE - Infectious Disease History Infectious Disease History: Reports: Chicken Pox, Other (See Below) Other Infectious Disease History: scabies - Past Surgical History HEENT Surgical History: Reports: Tonsillectomy Cardiovascular Surgical History: Reports: None GI Surgical History: Reports: Appendectomy, Cholecystectomy, Hernia, Inguinal Female Surgical History: Reports: None Endocrine Surgical History: Reports: None Neurological Surgical History: Reports: None Musculoskeletal Surgical History: Reports: None Dermatological Surgical History: Reports: None Social & Family History - Family History Family Medical History: No Pertinent Family History - Tobacco Use Tobacco Use Status *Q: Never Tobacco User Second Hand Smoke Exposure: No - Caffeine Use Caffeine Use: Reports: Coffee - Recreational Drug Use Recreational Drug Use: No ED ROS GENERAL - Review of Systems Review Of Systems: Comprehensive ROS is negative, except as noted in HPI. ED EXAM, GI/ABD - Physical Exam Exam: See Below (See dictation) Course - Vital Signs Last Recorded V/S: Last Vital Signs Temp 97.1 F 08/06/21 19:50 Pulse 74 08/06/21 21:11 Resp 16 08/06/21 21:11 BP 121/80 08/06/21 21:11 Pulse Ox 97 08/06/21 21:11 - Orders/Labs/Meds Orders: Active Orders 24 hr Category Date Time Status Sodium Chloride 0.9% [Saline Flush] Med 08/06/21 20:03 Active 10 ml FLUSH ASDIRECTED PRN Sodium Chloride 0.9% [Saline Flush] Med 08/06/21 20:03 Active 2.5 ml FLUSH ASDIRECTED PRN Saline Lock Insert [OM.PC] Stat Oth 08/06/21 20:03 Ordered Medication Orders Sodium Chloride (Sodium Chloride 0.9% 10 Ml Syringe) 10 ml FLUSH ASDIRECTED PRN PRN Reason: Keep Vein Open Last Admin: 08/06/21 20:16 Dose: 10 ml Documented by: DAVID Sodium Chloride (Sodium Chloride 0.9% 2.5 Ml Syringe) 2.5 ml FLUSH ASDIRECTED PRN PRN Reason: Keep Vein Open Last Admin: 08/06/21 20:16 Dose: 2.5 ml Documented by: DAVID Labs: Laboratory Tests 08/06/21 08/06/21 08/06/21 Range/Units 19:57 19:57 20:05 WBC 11.98 H (4.0-11.0) K/uL RBC 4.75 (4.30-5.90) M/uL Hgb 13.5 (12.0-16.0) g/dL Hct 40.2 (36.0-46.0) % MCV 84.6 (80.0-98.0) fL MCH 28.4 (27.0-32.0) pg MCHC 33.6 (31.0-37.0) g/dL RDW Std Deviation 42.4 (28.0-62.0) fl RDW Coeff of Joseph 14 (11.0-15.0) % Plt Count 244 (150-400) K/uL MPV 10.70 (7.40-12.00) fL Neut % (Auto) 72.0 (48.0-80.0) % Lymph % (Auto) 20.2 (16.0-40.0) % [place] % (Auto) 5.8 (0.0-15.0) % Eos % (Auto) 1.8 (0.0-7.0) % Baso % (Auto) 0.2 (0.0-1.5) % Neut # (Auto) 8.6 H (1.4-5.7) K/uL Lymph # (Auto) 2.4 (0.6-2.4) K/uL [place] # (Auto) 0.7 (0.0-0.8) K/uL Eos # (Auto) 0.2 (0.0-0.7) K/uL Baso # (Auto) 0.0 (0.0-0.1) K/uL Nucleated RBC % 0.0 /100WBC Nucleated RBCs # 0 K/uL Sodium 136 (136-145) mmol/L Potassium 4.0 (3.5-5.1) mmol/L Chloride 101 (98-107) mmol/L Carbon Dioxide 26.4 (21.0-32.0) mmol/L BUN 7 (7.0-18.0) mg/dL Creatinine 0.6 (0.6-1.0) mg/dL Est Cr Clr Drug Dosing 106.28 mL/min Estimated GFR (MDRD) > 60.0 ml/min Glucose 102 (74-106) mg/dL Calcium 9.0 (8.5-10.1) mg/dL Total Bilirubin 0.4 (0.2-1.0) mg/dL AST 12 L (15-37) IU/L ALT 31 (14-63) IU/L Alkaline Phosphatase 116 (46-116) U/L Total Protein 8.0 (6.4-8.2) g/dL Albumin 3.6 (3.4-5.0) g/dL Globulin 4.4 H (2.6-4.0) g/dL Albumin/Globulin Ratio 0.8 L (0.9-1.6) Urine Color YELLOW Urine Appearance HAZY Urine pH 6.0 (5.0-8.0) Ur Specific [place] 1.025 (1.001-1.035) Urine Protein NEGATIVE (NEGATIVE) mg/dL Urine Glucose (UA) NEGATIVE (NEGATIVE) mg/dL Urine Ketones NEGATIVE (NEGATIVE) mg/dL Urine Occult Blood SMALL H (NEGATIVE) Urine Nitrite NEGATIVE (NEGATIVE) Urine Bilirubin NEGATIVE (NEGATIVE) Urine Urobilinogen 0.2 (<2.0) EU/dL Ur Leukocyte Esterase NEGATIVE (NEGATIVE) Urine RBC 0-2 (0-2/HPF) Urine WBC 0-1 (0-5/HPF) Ur Epithelial Cells RARE (NONE-FEW) Urine Bacteria RARE (NEGATIVE) Urine HCG, Qual (NEGATIVE) 08/06/21 Range/Units 20:25 WBC (4.0-11.0) K/uL RBC (4.30-5.90) M/uL Hgb (12.0-16.0) g/dL Hct (36.0-46.0) % MCV (80.0-98.0) fL MCH (27.0-32.0) pg MCHC (31.0-37.0) g/dL RDW Std Deviation (28.0-62.0) fl RDW Coeff of Joseph (11.0-15.0) % Plt Count (150-400) K/uL MPV (7.40-12.00) fL Neut % (Auto) (48.0-80.0) % Lymph % (Auto) (16.0-40.0) % [place] % (Auto) (0.0-15.0) % Eos % (Auto) (0.0-7.0) % Baso % (Auto) (0.0-1.5) % Neut # (Auto) (1.4-5.7) K/uL Lymph # (Auto) (0.6-2.4) K/uL Living[place] # (Auto) (0.0-0.8) K/uL Eos # (Auto) (0.0-0.7) K/uL Baso # (Auto) (0.0-0.1) K/uL Nucleated RBC % /100WBC Nucleated RBCs # K/uL Sodium (136-145) mmol/L Potassium (3.5-5.1) mmol/L Chloride (98-107) mmol/L Carbon Dioxide (21.0-32.0) mmol/L BUN (7.0-18.0) mg/dL Creatinine (0.6-1.0) mg/dL Est Cr Clr Drug Dosing mL/min Estimated GFR (MDRD) ml/min Glucose (74-106) mg/dL Calcium (8.5-10.1) mg/dL Total Bilirubin (0.2-1.0) mg/dL AST (15-37) IU/L ALT (14-63) IU/L Alkaline Phosphatase (46-116) U/L Total Protein (6.4-8.2) g/dL Albumin (3.4-5.0) g/dL Globulin (2.6-4.0) g/dL Albumin/Globulin Ratio (0.9-1.6) Urine Color Urine Appearance Urine pH (5.0-8.0) Ur Specific [place] (1.001-1.035) Urine Protein (NEGATIVE) mg/dL Urine Glucose (UA) (NEGATIVE) mg/dL Urine Ketones (NEGATIVE) mg/dL Urine Occult Blood (NEGATIVE) Urine Nitrite (NEGATIVE) Urine Bilirubin (NEGATIVE) Urine Urobilinogen (<2.0) EU/dL Ur Leukocyte Esterase (NEGATIVE) Urine RBC (0-2/HPF) Urine WBC (0-5/HPF) Ur Epithelial Cells (NONE-FEW) Urine Bacteria (NEGATIVE) Urine HCG, Qual NEGATIVE (NEGATIVE) Meds: Medications Generic Name Dose Route Start Last Admin Trade Name Freq PRN Reason Stop Dose Admin Sodium Chloride 10 ml 08/06/21 20:03 08/06/21 20:16 Sodium Chloride 0.9% 10 Ml Syringe FLUSH 10 ml ASDIRECTED PRN Administration Keep Vein Open Sodium Chloride 2.5 ml 08/06/21 20:03 08/06/21 20:16 Sodium Chloride 0.9% 2.5 Ml Syringe FLUSH 2.5 ml ASDIRECTED PRN Administration Keep Vein Open Discontinued Medications Generic Name Dose Route Start Last Admin Trade Name Freq PRN Reason Stop Dose Admin Sodium Chloride 1,000 mls @ 999 mls/hr 08/06/21 20:05 08/06/21 20:14 Normal Saline IV 08/06/21 21:05 999 mls/hr .BOLUS ONE Administration Ketorolac Tromethamine 30 mg 08/06/21 20:05 08/06/21 20:18 Ketorolac 30 Mg/Ml Sdv IVPUSH 08/06/21 20:06 30 mg ONETIME ONE Administration Ondansetron HCl 4 mg 08/06/21 20:05 11/14/21 20:18 Ondansetron 4 Mg/2 Ml Sdv IVPUSH 08/06/21 20:06 4 mg ONETIME ONE Administration Departure - Departure Time of Disposition: 21:32 Disposition: Home, Self-Care 01 Condition: Good Clinical Impression: Abdominal pain Qualifiers: Abdominal location: right lower quadrant Qualified Code(s): R10.31 - Right lower quadrant pain - Discharge Information *PRESCRIPTION DRUG MONITORING PROGRAM REVIEWED*: Not Applicable *COPY OF PRESCRIPTION DRUG MONITORING REPORT IN PATIENT REGINE: Not Applicable Prescriptions: Ondansetron [Zofran ODT] 4 mg PO Q6H PRN #10 tab.dis PRN Reason: Nausea Instructions: Abdominal Pain, Adult, [id number] Referrals: Angelia Tapia [employer]LECT[employer] MAINTE[employer] ENGINEER [Primary Care Provider] - Forms: ED Department Discharge Additional Instructions: The following information is given to patients seen in the emergency department who are being discharged to home. This information is to outline your options for follow-up care. We provide all patients seen in our emergency department with a follow-up referral. The need for follow-up, as well as the timing and circumstances, are variable depending upon the specifics of your emergency department visit. If you don't have a primary care physician on staff, we will provide you with a referral. We always advise you to contact your personal physician following an emergency department visit to inform them of the circumstance of the visit and for follow-up with them and/or the need for any referrals to a consulting specialist. The emergency department will also refer you to a specialist when appropriate. This referral assures that you have the opportunity for follow-up care with a specialist. All of these measure are taken in an effort to provide you with optimal care, which includes your follow-up. Under all circumstances we always encourage you to contact your private physician who remains a resource for coordinating your care. When calling for follow-up care, please make the office aware that this follow-up is from your recent emergency room visit. If for any reason you are refused follow-up, please contact the [facility] Emergency Department at and asked to speak to the emergency department charge nurse. [facility] - Primary Care [address] [place] [id number] [facility] [address] [place] [address] Plan: 1. You were evaluated today on an emergent basis. Your abdominal pain was evaluated with blood work which was essentially normal and an abdominal/pelvis CT which was also normal. I have sent a prescription for Zofran 4 mg ODT every 6 hours for nausea if you develop that tomorrow. The prescription was sent to the pharmacy. I put your name on the primary care list for follow-up. Someone will call you with a follow-up appointment. If you do not hear from the hospital tomorrow please call and make a follow-up appointment with your primary care provider. If you are unable to deal with the pain or the Tylenol and Motrin doesn't control it please return to the emergency department for further evaluation. 2. You can alternate Tylenol and ibuprofen as needed for pain and fever management. 3. We encourage you to follow up with your primary care provider and/or recommended specialist in the next few days for re-evaluation and further care/management. 4. If your symptoms should worsen, new symptoms develop or any of the signs and symptoms we discussed should arise please return to the emergency room or call 911 (if needed). Sepsis Event Note (ED) - Evaluation Sepsis Screening Result: No Definite Risk - Focused Exam Vital Signs: Vital Signs Temp Pulse Resp BP Pulse Ox 08/06/21 21:11 74 16 121/80 97 08/06/21 19:50 97.1 F 70 16 121/80 98 - My Orders Last 24 Hours: My Active Orders 08/06/21 20:03 Sodium Chloride 0.9% [Saline Flush] 10 ml FLUSH ASDIRECTED PRN Sodium Chloride 0.9% [Saline Flush] 2.5 ml FLUSH ASDIRECTED PRN Saline Lock Insert [OM.PC] Stat - Assessment/Plan Last 24 Hours: My Active Orders 08/06/21 20:03 Sodium Chloride 0.9% [Saline Flush] 10 ml FLUSH ASDIRECTED PRN Sodium Chloride 0.9% [Saline Flush] 2.5 ml FLUSH ASDIRECTED PRN Saline Lock Insert [OM.PC] Stat
[2021-08-06 20:26] LABS: BLOOD UREA NITROGEN,BUN 7 mg/dL (7.0-18.0); CARBON DIOXIDE,CO2 26.4 mmol/L (21.0-32.0); CHLORIDE,CL 101 mmol/L (98-107); GLUCOSE RANDOM 102 mg/dL (74-106); SODIUM,NA 136 mmol/L (136-145)
--- NOTE | 2021-08-06 21:24 | CT ---
INDICATION: Right lower quadrant and right costovertebral pain TECHNIQUE: CT Abdomen and pelvis without i.v. contrast. Coronal and sagittal reformats were obtained. COMPARISON: None FINDINGS: Lower chest: Unremarkable. Liver: Unremarkable. Spleen: Unremarkable. Pancreas: Unremarkable. Gallbladder: Previous cholecystectomy noted without significant intra- or extrahepatic biliary ductal dilatation seen. Kidney: Unremarkable. No kidney or ureteral stones or obstruction seen. Pyelonephritis cannot be assessed without the use of intravenous contrast. Adrenal: Unremarkable. Bowel: Unremarkable. Previous appendectomy noted with no significant appendiceal stump identified. Vascular: Unremarkable. Lymph: Unremarkable. Peritoneum: Unremarkable. No pneumoperitoneum is seen. Trace amount of ascites is present and is likely physiologic in origin. Pelvis: Unremarkable. Soft tissue: Unremarkable. Bone: Unremarkable for age. IMPRESSION: 1. Unremarkable with no CT correlate for the patient`s symptoms seen. Dictated by Scott Pinto MD @ 08/06/2021 9:24:14 PM Please note that all CT scans at this facility use dose modulation, iterative reconstruction, and/or weight-based dosing when appropriate to reduce radiation dose to as low as reasonably achievable. Dictated by: Scott Pinto MD @ 08/06/2021 21:24:19 (Electronically Signed)
== END 2021-08-06 21:44 | disposition home or self-care (01) ==
LOC: MW.ED 19:28
DX: R10.31 Right lower quadrant pain (principal); Z88.5 Allergy status to narcotic agent; Z91.040 Latex allergy status; Z91.013 Allergy to seafood; Z88.2 Allergy status to sulfonamides
CPT/HCPCS: 36415; 74176; 80053; 81001; 81025; 85025; 96374; 96375; 99284; J1885; J2405; J7030

== ENCOUNTER 2021-11-20 20:19 | Emergency (ER) | payer MEDICAID ==
[2021-11-20] MEDS: Ondansetron 4 MG/2 ML SDV IVPUSH ONE (21:03)
[2021-11-20] MEDS: Sodium Chloride 0.9% 1,000 ML IV ONE (21:03)
[2021-11-20] MEDS: Ketorolac 30 MG/ML SDV IVPUSH ONE (21:04)
[2021-11-20 21:44] LABS: BLOOD UREA NITROGEN,BUN 7 mg/dL (7.0-18.0); CARBON DIOXIDE,CO2 23.7 mmol/L (21.0-32.0); CHLORIDE,CL 100 mmol/L (98-107); GLUCOSE RANDOM 113 mg/dL (74-106); POTASSIUM,K 3.7 mmol/L (3.5-5.1); SODIUM,NA 137 mmol/L (136-145)
== END 2021-11-20 22:43 | disposition home or self-care (01) ==
LOC: MW.ED 20:19
DX: R05.9 Cough, unspecified (principal); Z88.5 Allergy status to narcotic agent; Z91.040 Latex allergy status; Z91.013 Allergy to seafood; Z88.2 Allergy status to sulfonamides; Z86.73 Personal history of transient ischemic attack (TIA), and cerebral infarction without residual deficits
CPT/HCPCS: 36415; 71045; 80053; 83605; 83735; 84484; 84703; 85025; 85379; 93005; 96374; 96375; 99284; J1885; J2405; J7030

== ENCOUNTER 2021-11-22 23:20 | Emergency (ER) | payer MEDICAID ==
[2021-11-23] MEDS ORDERED: guaiFENesin/Dextromethorphan 100-10 MG/5 ML Soln 10 ML Cup PO STA (00:34)
[2021-11-23] MEDS ORDERED: Ketorolac 30 MG/ML SDV IM ONE (00:35)
[2021-11-23] MEDS ORDERED: Albuterol 0.083% 2.5 MG/3 ML Neb Soln NEB STA (00:43)
[2021-11-23 01:47] LABS: BLOOD UREA NITROGEN,BUN 9 mg/dL (7.0-18.0); CARBON DIOXIDE,CO2 23.7 mmol/L (21.0-32.0); CHLORIDE,CL 104 mmol/L (98-107); GLUCOSE RANDOM 99 mg/dL (74-106); POTASSIUM,K 3.4 mmol/L (3.5-5.1); SODIUM,NA 141 mmol/L (136-145)
[2021-11-23] MEDS ORDERED: Potassium Chloride 10% 20 MEQ/15 ML Soln 30 ML UD Cup PO ONE (02:11)
[2021-11-23] MEDS ORDERED: Ondansetron 4 MG Tab.DIS PO ONE (02:54)
== END 2021-11-23 02:58 | disposition home or self-care (01) ==
LOC: MW.ED 23:20
DX: M94.0 Chondrocostal junction syndrome [Tietze] (principal); Z88.5 Allergy status to narcotic agent; Z91.040 Latex allergy status; Z91.013 Allergy to seafood; Z88.2 Allergy status to sulfonamides; Z86.73 Personal history of transient ischemic attack (TIA), and cerebral infarction without residual deficits
CPT/HCPCS: 36415; 71045; 80053; 84484; 85025; 85379; 93005; 96372; 99284; A9270; J1885

== ENCOUNTER 2022-07-03 03:00 | Emergency (ER) | payer BC ==
[~2022-07-03 03:00] MED LIST: Lidocaine 2% Viscous Solution 15 ML UD PO ONE; Metoclopramide Oral Soln 10 MG/10 ML UD Cup PO ONE; Morphine 4 MG/ML Syringe IV ONE; Ondansetron 4 MG/2 ML SDV IVPUSH ONE; Sodium Chloride 0.9% 1,000 ML IV ONE
[2022-07-03] MEDS ORDERED: Iopamidol 755 Mg/ML 100 ML Bottle IV ONE (03:01)
[2022-07-03] MEDS ORDERED: Morphine 2 MG/ML SYRINGE IV ONE (03:40)
[2022-08-10 03:22] LABS: BLOOD UREA NITROGEN,BUN 11 mg/dL (7.0-18.0); CARBON DIOXIDE,CO2 25.9 mmol/L (21.0-32.0); CHLORIDE,CL 103 mmol/L (98-107); ESTIMATED GFR 103 mL/min (>60); GLUCOSE RANDOM 106 mg/dL (74-106); POTASSIUM,K 3.9 mmol/L (3.5-5.1); SODIUM,NA 138 mmol/L (136-145)
[2022-08-10 03:23] LABS: LIPASE 69 U/L (73-393)
== END 2022-07-03 05:15 | disposition home or self-care (01) ==
LOC: MW.ED 03:00
DX: R10.13 Epigastric pain (principal); M54.9 Dorsalgia, unspecified; Z91.013 Allergy to seafood; Z88.2 Allergy status to sulfonamides
CPT/HCPCS: 36415; 74177; 80053; 81001; 81025; 83690; 84484; 85025; 93005; 99284; A9270; J2270; J2405; J7030; Q9967; 93010; 96361; 96374; 96375; 96376; 99282

== ENCOUNTER 2022-11-07 21:04 | Emergency (ER) | payer BC ==
[2022-11-07] MEDS ORDERED: Ibuprofen 600 MG Tab PO ONE (21:19)
== END 2022-11-07 21:55 | disposition home or self-care (01) ==
LOC: MW.ED 21:04
DX: S93.505A Unspecified sprain of left lesser toe(s), initial encounter (principal); S96.912A Strain of unspecified muscle and tendon at ankle and foot level, left foot, initial encounter; Z88.5 Allergy status to narcotic agent; Z88.2 Allergy status to sulfonamides; Z91.040 Latex allergy status; Z91.013 Allergy to seafood; Z86.73 Personal history of transient ischemic attack (TIA), and cerebral infarction without residual deficits; W20.8XXA Other cause of strike by thrown, projected or falling object, initial encounter
CPT/HCPCS: 73630; 99283; A9270

== ENCOUNTER 2023-08-10 18:16 | Emergency (ER) | payer SELFPAY ==
[2023-08-10] MEDS ORDERED: methylPREDNISolone Sodium Succinate 125 MG/2 ML SDV IM ONE (19:03)
[2023-08-10] MEDS ORDERED: Albuterol/Ipratropium 3.0-0.5 MG/3 ML Neb Soln NEB ONE (19:03)
[2023-08-10 19:04] LABS: BASOPHILS ABSOLUTE AUTO 0.03 K/uL (0.00-0.20); BASOPHILS PERCENT AUTO 0.4 % (0.0-1.0); EOSINOPHILS ABSOLUTE AUTO 0.22 K/uL (0.00-0.45); EOSINOPHILS PERCENT AUTO 3.2 % (0.0-6.0); HEMOGLOBIN 14.1 g/dL (12.0-16.0); IMMATURE GRAN ABSOLUTE AUTO 0.01 K/uL (0.00-0.05); IMMATURE GRAN PERCENT AUTO 0.1 % (0.0-0.4); LYMPHOCYTES ABSOLUTE AUTO 2.48 K/uL (1.00-4.80); LYMPHOCYTES PERCENT AUTO 36.3 % (24.0-44.0); MEAN CORPUSCULAR HEMOGLOBIN 30.2 pg (28.0-32.0); MEAN CORPUSCULAR HGB CONC 35.3 g/dL (32.0-36.0); MEAN CORPUSCULAR VOLUME 85.7 fL (83.0-99.0); MEAN PLATELET VOLUME 10.5 fL (9.4-12.3); MONOCYTES ABSOLUTE AUTO 0.42 K/uL (0.00-0.80); MONOCYTES PERCENT AUTO 6.1 % (0.0-8.0); NEUTROPHILS ABSOLUTE AUTO 3.68 K/uL (1.80-7.70); NEUTROPHILS PERCENT AUTO 53.9 % (41.0-71.0); PLATELET COUNT,PLT 181 K/uL (150-400); RED BLOOD CELL COUNT 4.67 M/uL (4.10-5.30); WHITE BLOOD CELL COUNT,WBC 6.84 K/uL (3.9-11.3)
[2023-08-10] MEDS ORDERED: Ketorolac 30 MG/ML SDV IM ONE (19:08)
[2023-08-10 19:29] LABS: A/G RATIO 1.1 (0.9-1.6); ALBUMIN 3.8 g/dL (3.4-5.0); BILIRUBIN TOTAL 0.3 mg/dL (0.2-1.0); CALCIUM 8.9 mg/dL (8.5-10.1); CARBON DIOXIDE,CO2 27.5 mmol/L (21.0-32.0); CREATININE 0.7 mg/dL (0.6-1.0); EST CRCL DRUG DOSING (CG) 93.79 mL/min; PROTEIN TOTAL,TP 7.3 g/dL (6.4-8.2)
[2023-08-10 20:10] LABS: CORONAVIRUS COVID-19 NAA NEGATIVE (NEGATIVE); INFLUENZA A NAA NEGATIVE (NEGATIVE); INFLUENZA B NAA NEGATIVE (NEGATIVE); RESPIRATORY SYNCYTIAL VIR NAA NEGATIVE (NEGATIVE)
== END 2023-08-10 21:22 | disposition home or self-care (01) ==
LOC: MW.ED 18:16
DX: R07.81 Pleurodynia (principal); E11.9 Type 2 diabetes mellitus without complications; Z91.040 Latex allergy status; Z88.2 Allergy status to sulfonamides; Z91.013 Allergy to seafood; Z88.5 Allergy status to narcotic agent; Z90.49 Acquired absence of other specified parts of digestive tract
CPT/HCPCS: 0241U; 36415; 71046; 80053; 84484; 85025; 85379; 85652; 86140; 93005; 96372; 99285; J1885; J2930; 93010; 99283; J7620-GY

== ENCOUNTER 2023-09-15 10:22 | Emergency (ER) | payer BC ==
[2023-09-15] MEDS ORDERED: Sodium Chloride 0.9% 1,000 ML IV STA (10:44)
[2023-09-15] MEDS ORDERED: Ondansetron 4 MG/2 ML SDV IVPUSH STA (10:44)
[2023-09-15] MEDS ORDERED: Ketorolac 30 MG/ML SDV IVPUSH STA (10:44)
[2023-09-15 11:16] LABS: APPEARANCE,URINE CLEAR; BILIRUBIN,URINE NEGATIVE (NEGATIVE); COLOR,URINE YELLOW; GLUCOSE,URINE NEGATIVE (NEGATIVE); KETONES,URINE NEGATIVE (NEGATIVE); LEUKOCYTE ESTERASE,URINE NEGATIVE (NEGATIVE); NITRITE,URINE NEGATIVE (NEGATIVE); OCCULT BLOOD,URINE TRACE-INTACT (NEGATIVE); PH,URINE 6.5 (5.0-8.0); PROTEIN,URINE NEGATIVE (NEGATIVE); UROBILINOGEN,URINE 0.2 EU/dL (<2.0)
[2023-09-15 11:19] LABS: BASOPHILS ABSOLUTE AUTO 0.03 K/uL (0.00-0.20); BASOPHILS PERCENT AUTO 0.3 % (0.0-1.0); EOSINOPHILS ABSOLUTE AUTO 0.04 K/uL (0.00-0.45); EOSINOPHILS PERCENT AUTO 0.4 % (0.0-6.0); HEMOGLOBIN 14.4 g/dL (12.0-16.0); IMMATURE GRAN ABSOLUTE AUTO 0.03 K/uL (0.00-0.05); IMMATURE GRAN PERCENT AUTO 0.3 % (0.0-0.4); LYMPHOCYTES ABSOLUTE AUTO 1.66 K/uL (1.00-4.80); LYMPHOCYTES PERCENT AUTO 14.8 % (24.0-44.0); MEAN CORPUSCULAR HEMOGLOBIN 30.3 pg (28.0-32.0); MEAN CORPUSCULAR HGB CONC 35.1 g/dL (32.0-36.0); MEAN CORPUSCULAR VOLUME 86.3 fL (83.0-99.0); MONOCYTES PERCENT AUTO 4.5 % (0.0-8.0); NEUTROPHILS ABSOLUTE AUTO 8.96 K/uL (1.80-7.70); NEUTROPHILS PERCENT AUTO 79.7 % (41.0-71.0); PLATELET COUNT,PLT 223 K/uL (150-400); RED BLOOD CELL COUNT 4.75 M/uL (4.10-5.30); WHITE BLOOD CELL COUNT,WBC 11.22 K/uL (3.9-11.3)
[2023-09-15 11:26] LABS: BACTERIA,URINE FEW (NEGATIVE); EPITHELIAL CELLS,URINE OCCASIONAL (NONE-FEW); WBC,URINE 0-2 (0-5/HPF)
[2023-09-15 11:39] LABS: A/G RATIO 1.1 (0.9-1.6); ALBUMIN 3.9 g/dL (3.4-5.0); BILIRUBIN TOTAL 0.4 mg/dL (0.2-1.0); CALCIUM 8.8 mg/dL (8.5-10.1); CARBON DIOXIDE,CO2 28.1 mmol/L (21.0-32.0); CREATININE 0.7 mg/dL (0.6-1.0); EST CRCL DRUG DOSING (CG) 93.79 mL/min; POTASSIUM,K 3.7 mmol/L (3.5-5.1); PROTEIN TOTAL,TP 7.5 g/dL (6.4-8.2)
[2023-09-15] MEDS ORDERED: Iopamidol 755 MG/ML 500 ML Multipack Bottle IVPUSH STA (12:20)
== END 2023-09-15 13:37 | disposition home or self-care (01) ==
LOC: MW.ED 10:22
DX: R10.31 Right lower quadrant pain (principal); R11.2 Nausea with vomiting, unspecified; Z79.899 Other long term (current) drug therapy; Z88.5 Allergy status to narcotic agent; Z91.040 Latex allergy status; Z91.013 Allergy to seafood; Z88.2 Allergy status to sulfonamides
CPT/HCPCS: 36415; 74177; 80053; 81001; 81025; 83690; 83735; 85025; 96361; 96374; 96375; 99284; J1885; J2405; J7030; Q9967